=== PATIENT | female | born 1955 | race Caucasian/White ===

== ENCOUNTER 2016-11-02 06:09 | Emergency (ER) | payer SELFPAY ==
[~2016-11-02 06:09] MED LIST: CYAN100017 PO; CYTO25TA PO; FLUO-1 PO; LEVO.1 PO; MIRTA15 PO; QUET1TAB7 PO
[2016-11-02 06:12] VITALS: BP 150/81; PULSE 75; RESP 16; TEMP 97.6; O2SAT 98
--- NOTE | 2016-11-02 06:52 | PD ---
HPI Chief Complaint: Psychiatric Symptoms Time Seen by Provider: 06:45 Travel History International Travel<30 days: No Contact w/Intl Traveler<30days: No Traveled to known affect area: No History of Present Illness HPI This is a 61-year-old female with a history of major depressive disorder who comes in voluntarily requesting psychiatric evaluation. She reports that for the past several months she has been experiencing depression, racing thoughts, insomnia. This patient was admitted psychiatrically here in July. She reports that she was discharged on Seroquel and she was also taking Prozac. This seemed to help a little bit with her insomnia but she shortly ran out. She has been unable to follow-up as an outpatient with the psychiatry team. She is currently living with her friend. Symptoms have been worsening which prompted evaluation today. She feels depressed, feels that she can no longer live this way but has no specific plans for suicide. Denies any drug or alcohol use. No medical complaints at this time. PFSH Past Medical History Arthritis: No Asthma: No Anxiety: Yes Depression: Yes Heart Rhythm Problems: No Cancer: No (Denied) Cardiovascular Problems: No (Denied) Chest Pain: No Congestive Heart Failure: No COPD: No Cerebrovascular Accident: No Diabetes: No (Denied) Endocrine: Yes Gastrointestinal Disorders: No GERD: No Genitourinary: No Headaches: No (Denied) Hiatal Hernia: No Hypertension: No Implanted Vascular Access Dvce: No Kidney Stones: No Musculoskeletal: No Neurologic: No Psychiatric: Yes (JENNIFER, SAD, Bipolar) Reproductive: No Respiratory: No Immunizations Current: Yes Migraines: No Renal Failure: No Seizures: No (Denied) Sleep Apnea: No Thyroid Disease: Yes (patient on synthroid) Ulcer: No Tetanus Vaccination: Unknown Influenza Vaccination: No Past Surgical History Other Surgery: No Social History Alcohol Use: No Tobacco Use: Yes Substance Use: No Allergies-Medications (Allergen,Severity, Reaction): Coded Allergies: Sulfa (Unverified Allergy, Unknown, 11/02/16) Reported Meds & Prescriptions Reported Meds & Active Scripts Active Seroquel XR (Quetiapine Fumarate) 50 Mg Tab 50 Mg PO DAILY B-12 (Cyanocobalamin) 1,000 Mcg Cap 1,000 Mcg PO DAILY Quetiapine (Quetiapine Fumarate) 25 Mg Tab 250 Mg PO HS 5 Days Mirtazapine 15 Mg Tab 45 Mg PO HS 5 Days Cytomel (Liothyronine Sodium) 25 Mcg Tab 25 Mcg PO DAILY 5 Days Synthroid (Levothyroxine Sodium) 100 Mcg Tab 100 Mcg PO DAILY@0600 5 Days Prozac (Fluoxetine HCl) 10 Mg Cap 40 Mg PO DAILY 5 Days Review of Systems Except as stated in HPI: all other systems reviewed are Neg Physical Exam Narrative GENERAL: Well-developed well-nourished female in no acute distress SKIN: Warm and dry. HEAD: Atraumatic. Normocephalic. EYES: Pupils equal and round. No scleral icterus. No injection or drainage. ENT: No nasal bleeding or discharge. Mucous membranes pink and moist. NECK: Trachea midline. No JVD. CARDIOVASCULAR: Regular rate and rhythm. No murmur appreciated. RESPIRATORY: No accessory muscle use. Clear to auscultation. Breath sounds equal bilaterally. GASTROINTESTINAL: Abdomen soft, non-tender, nondistended. Hepatic and splenic margins not palpable. MUSCULOSKELETAL: No obvious deformities. No edema. NEUROLOGICAL: Awake and alert. No obvious cranial nerve deficits. Motor grossly within normal limits. Normal speech. PSYCHIATRIC: Somewhat depressed mood; insight and judgment normal. Data Data Last Documented VS Vital Signs Date Time Temp Pulse Resp B/P Pulse Ox O2 Delivery O2 Flow Rate FiO2 11/02/16 14:35 57 18 122/67 99 11/02/16 11:54 Room Air 11/02/16 09:56 97.7 Orders Complete Blood Count With Diff (11/02/16 06:39) Comprehensive Metabolic Panel (11/02/16 06:39) Urinalysis - C+S If Indicated (11/02/16 06:39) Drug Screen, Random Urine (11/02/16 06:39) Alcohol (Ethanol) (11/02/16 06:39) Salicylates (Aspirin) (11/02/16 06:39) Tylenol (Acetaminophen) (11/02/16 06:39) Psych Screen (11/02/16 06:39) Levothyroxine (Synthroid) (11/02/16 07:45) Buspirone (Buspar) (11/02/16 08:00) Labs Laboratory Tests Test 11/02/16 06:53 White Blood Count 6.7 TH/MM3 Red Blood Count 4.73 MIL/MM3 Hemoglobin 15.4 GM/DL Hematocrit 45.4 % Mean Corpuscular Volume 96.0 FL Mean Corpuscular Hemoglobin 32.5 PG Mean Corpuscular Hemoglobin 33.9 % Concent Red Cell Distribution Width 14.3 % Platelet Count 209 TH/MM3 Mean Platelet Volume 7.9 FL Neutrophils (%) (Auto) 63.8 % Lymphocytes (%) (Auto) 26.6 % Monocytes (%) (Auto) 8.4 % Eosinophils (%) (Auto) 0.4 % Basophils (%) (Auto) 0.8 % Neutrophils # (Auto) 4.3 TH/MM3 Lymphocytes # (Auto) 1.8 TH/MM3 Monocytes # (Auto) 0.6 TH/MM3 Eosinophils # (Auto) 0.0 TH/MM3 Basophils # (Auto) 0.1 TH/MM3 CBC Comment DIFF FINAL Differential Comment Urine Color DARK-YELLOW Urine Turbidity HAZY Urine pH 6.0 Urine Specific [place] 1.033 Urine Protein 30 mg/dL Urine Glucose (UA) NEG mg/dL Urine Ketones TRACE mg/dL Urine Occult Blood NEG Urine Nitrite NEG Urine Bilirubin NEG Urine Urobilinogen 4.0 MG/DL Urine Leukocyte Esterase MOD Urine RBC 3 /hpf Urine WBC 4 /hpf Urine Squamous Epithelial 4 /hpf Cells Urine Calcium Oxalate Crystals MANY /hpf Urine Mucus MANY /lpf Microscopic Urinalysis Comment CULT NOT INDICATED Sodium Level 142 MEQ/L Potassium Level 3.5 MEQ/L Chloride Level 106 MEQ/L Carbon Dioxide Level 26.0 MEQ/L Anion Gap 10 MEQ/L Blood Urea Nitrogen 20 MG/DL Creatinine 1.32 MG/DL Estimat Glomerular Filtration 41 ML/MIN Rate Random Glucose 98 MG/DL Calcium Level 9.2 MG/DL Total Bilirubin 0.9 MG/DL Aspartate Amino Transf 13 U/L (AST/SGOT) Alanine Aminotransferase 30 U/L (ALT/SGPT) Alkaline Phosphatase 77 U/L Total Protein 7.6 GM/DL Albumin 4.4 GM/DL Salicylates Level 4.1 MG/DL Urine Opiates Screen NEG Acetaminophen Level LESS THAN 2.0 MCG/ML Urine Barbiturates Screen NEG Urine Amphetamines Screen NEG Urine Benzodiazepines Screen NEG Urine Cocaine Screen NEG Urine Cannabinoids Screen NEG Ethyl Alcohol Level LESS THAN 3 MG/DL MDM Medical Decision Making Medical Screen Exam Complete: Yes Emergency Medical Condition: Yes Medical Record Reviewed: Yes Differential Diagnosis Insomnia, adjustment reaction, medication noncompliance, acute psychosis, major depressive disorder, depressive disorder not otherwise specified Narrative Course 65-year-old female who reports a history of major depressive disorder presents voluntarily or psychiatric evaluation of insomnia, depression, suicidal thoughts for the past several months. Unable to establish outpatient psychiatric follow-up after a psychiatric hospitalization in late July of this year. Mental health screening discussed with the patient. Psychiatric screen ordered. The patient will be medically cleared pending lab work. Scripts Quetiapine XR (Seroquel XR)50 Mg Tab50 Mg PO DAILY #30 TAB Ref 0 Prov:Brant Alejandro MD 11/02/16 Jose Zafar Nov 02, 2016 06:52
[2016-11-02 07:03] LABS: AUTOMATED NEUTROPHIL # 4.3 TH/MM3 (1.8-7.7); BASOPHIL # 0.1 TH/MM3 (0-0.2); BASOPHIL % 0.8 % (0.0-2.0); EOSINOPHIL % 0.4 % (0.0-4.0); HEMATOCRIT 45.4 % (35.0-46.0); HEMO FLAGS DIFF FINAL; LYMPH % 26.6 % (9.0-44.0); LYMPHOCYTE # 1.8 TH/MM3 (1.0-4.8); MEAN CORPUSCULAR HEMOGLOBIN 32.5 PG (27.0-34.0); MEAN CORPUSCULAR HGB CONC 33.9 % (32.0-36.0); MONO % 8.4 % (0.0-8.0); NEUT % 63.8 % (16.0-70.0); PLATELET COUNT 209 TH/MM3 (150-450); RED BLOOD COUNT 4.73 MIL/MM3 (4.00-5.30); RED CELL DISTRIBUTION WIDTH 14.3 % (11.6-17.2); WHITE BLOOD COUNT 6.7 TH/MM3 (4.0-11.0)
[2016-11-02 07:11] LABS: BLOOD, URINE NEG (NEG); CALCIUM OXALATE CRYSTALS,URINE MANY /hpf; GLUCOSE,URINE NEG (NEG); KETONE, URINE TRACE mg/dL (NEG); MUCUS URINE MANY /lpf (OCC); NITRITE,URINE NEG (NEG); SQUAMOUS EPITHELIAL CELL URINE 4 /hpf (0-5); URINE COLOR DARK-YELLOW (YELLW/STRAW)
[2016-11-02 07:13] LABS: COMMENT (UR) CULT NOT INDICATED; CULTURE IF INDICATED CULT NOT INDICATED
[2016-11-02 07:17] LABS: AMPHETAMINE, URINE NEG (NEG); BARBITURATES, URINE NEG (NEG); COCAINE, URINE NEG (NEG)
[2016-11-02 07:25] LABS: ACETAMINOPHEN LESS THAN 2.0 MCG/ML (10.0-30.0); ALT (GPT) 30 U/L (10-53); ANION GAP 10 MEQ/L (5-15); AST (GOT) 13 U/L (15-37); BLOOD UREA NITROGEN 20 MG/DL (7-18); CHLORIDE 106 MEQ/L (98-107); GLOMERULAR FILTRATION RATE 41 ML/MIN (>89); POTASSIUM 3.5 MEQ/L (3.5-5.1); SODIUM (NA) 142 MEQ/L (136-145)
[2016-11-02 07:27] LABS: ALKALINE PHOSPHATASE 77 U/L (45-117); TOTAL BILIRUBIN ADULT 0.9 MG/DL (0.2-1.0)
[2016-11-02] MEDS ORDERED: LEVOTHYROXINE SODIUM 100 MCG TAB PO ONE (07:45)
--- NOTE | 2016-11-02 07:45 | PD ---
Physical Exam Date Seen by Provider: Nov 02, 2016 Narrative For full history and physical examination please see previous provider's note. I assumed care of this patient at change of shift. Patient was seen and evaluated in A11. Her friend is at bedside. Data Data Last Documented VS Vital Signs Date Time Temp Pulse Resp B/P Pulse Ox O2 Delivery O2 Flow Rate FiO2 11/02/16 06:44 16 11/02/16 06:12 97.6 75 150/81 98 Orders Complete Blood Count With Diff (11/02/16 06:39) Comprehensive Metabolic Panel (11/02/16 06:39) Urinalysis - C+S If Indicated (11/02/16 06:39) Drug Screen, Random Urine (11/02/16 06:39) Alcohol (Ethanol) (11/02/16 06:39) Salicylates (Aspirin) (11/02/16 06:39) Tylenol (Acetaminophen) (11/02/16 06:39) Psych Screen (11/02/16 06:39) Levothyroxine (Synthroid) (11/02/16 07:45) Labs Laboratory Tests Test 11/02/16 06:53 White Blood Count 6.7 TH/MM3 Red Blood Count 4.73 MIL/MM3 Hemoglobin 15.4 GM/DL Hematocrit 45.4 % Mean Corpuscular Volume 96.0 FL Mean Corpuscular Hemoglobin 32.5 PG Mean Corpuscular Hemoglobin 33.9 % Concent Red Cell Distribution Width 14.3 % Platelet Count 209 TH/MM3 Mean Platelet Volume 7.9 FL Neutrophils (%) (Auto) 63.8 % Lymphocytes (%) (Auto) 26.6 % Monocytes (%) (Auto) 8.4 % Eosinophils (%) (Auto) 0.4 % Basophils (%) (Auto) 0.8 % Neutrophils # (Auto) 4.3 TH/MM3 Lymphocytes # (Auto) 1.8 TH/MM3 Monocytes # (Auto) 0.6 TH/MM3 Eosinophils # (Auto) 0.0 TH/MM3 Basophils # (Auto) 0.1 TH/MM3 CBC Comment DIFF FINAL Differential Comment Urine Color DARK-YELLOW Urine Turbidity HAZY Urine pH 6.0 Urine Specific [place] 1.033 Urine Protein 30 mg/dL Urine Glucose (UA) NEG mg/dL Urine Ketones TRACE mg/dL Urine Occult Blood NEG Urine Nitrite NEG Urine Bilirubin NEG Urine Urobilinogen 4.0 MG/DL Urine Leukocyte Esterase MOD Urine RBC 3 /hpf Urine WBC 4 /hpf Urine Squamous Epithelial 4 /hpf Cells Urine Calcium Oxalate Crystals MANY /hpf Urine Mucus MANY /lpf Microscopic Urinalysis Comment CULT NOT INDICATED Sodium Level 142 MEQ/L Potassium Level 3.5 MEQ/L Chloride Level 106 MEQ/L Carbon Dioxide Level 26.0 MEQ/L Anion Gap 10 MEQ/L Blood Urea Nitrogen 20 MG/DL Creatinine 1.32 MG/DL Estimat Glomerular Filtration 41 ML/MIN Rate Random Glucose 98 MG/DL Calcium Level 9.2 MG/DL Total Bilirubin 0.9 MG/DL Aspartate Amino Transf 13 U/L (AST/SGOT) Alanine Aminotransferase 30 U/L (ALT/SGPT) Alkaline Phosphatase 77 U/L Total Protein 7.6 GM/DL Albumin 4.4 GM/DL Salicylates Level 4.1 MG/DL Urine Opiates Screen NEG Acetaminophen Level LESS THAN 2.0 MCG/ML Urine Barbiturates Screen NEG Urine Amphetamines Screen NEG Urine Benzodiazepines Screen NEG Urine Cocaine Screen NEG Urine Cannabinoids Screen NEG Ethyl Alcohol Level LESS THAN 3 MG/DL [facility] Medical Record Reviewed: Yes Supervised Visit with MATHEW: No Interpretation(s) Vital Signs Date Time Temp Pulse Re 16 150/81 98 Differential Diagnosis Depression versus mood disorder versus substance abuse versus hypothyroidism versus other Narrative Course Patient is a 61-year-old female who presented to emergency department voluntarily for psychiatric evaluation. Patient states to me that she's been very depressed for the last several months, she has not had outpatient follow- up. She denies any specific suicidal ideations but states that she can no longer go on like this. Patient's labs reviewed. CBC is unremarkable, tox screen was negative, chemistry showed elevated BUN/creatinine, urinalysis is not indicative of a urinary tract infection. Patient stated that she does not drink enough fluids or eat secondary to the depression. Friend at bedside states that she has to force her to eat and drink. Patient was encouraged to increase oral fluid intake. Patient will be given dose of levothyroxine in the emergency department this morning. Patient is medically cleared this time. She was given pamphlets for the [facility]'s [facility], the [facility], and [place] resources that are available to her. Diagnosis Primary Impression: Medical clearance for psychiatric admission Referrals: [facility] [place] Condition: Stable Sonia Shanks Nov 02, 2016 07:45
[2016-11-02] MEDS ORDERED: busPIRone HCL 10 MG TAB PO ONE (08:00)
[2016-11-02 09:56] VITALS: BP 130/90; PULSE 63; RESP 18; TEMP 97.7; O2SAT 100
[2016-11-02 11:54] VITALS: BP 151/67; PULSE 59; RESP 18; O2SAT 96
[2016-11-02 14:35] VITALS: BP 122/67; PULSE 57; RESP 18; O2SAT 99
[2016-11-02] MEDS ORDERED: QUET50XR PO (16:40)
== END 2016-11-02 18:50 | disposition home or self-care (01) ==
LOC: NEPA 06:09 → NEPJ 18:50
DX: F41.8 Other specified anxiety disorders (principal)
CPT/HCPCS: 80053; 80307; 80320; 80329; 81001; 85025; 99283; G0480

== ENCOUNTER 2018-02-08 11:31 | Inpatient (IN) | payer SELFPAY ==
[2018-02-08] VITALS (8 sets, daily range): BP systolic 131–150; BP diastolic 63–72; PULSE 49–84; RESP 16–20; TEMP 97.2; O2SAT 97–99
[~2018-02-08] VITALS: Ht 157.5 cm; Wt 97.5 kg
[~2018-02-08 11:31] MED LIST changes: -CYTO25TA PO; +LIOT25 PO; +QUET50XR PO
[2018-02-08 12:57] LABS: AUTOMATED NEUTROPHIL # 2.5 TH/MM3 (1.8-7.7); BASOPHIL # 0.1 TH/MM3 (0-0.2); BASOPHIL % 1.7 % (0.0-2.0); EOSINOPHIL # 0.1 TH/MM3 (0-0.4); EOSINOPHIL % 2.4 % (0.0-4.0); HEMATOCRIT 38.5 % (35.0-46.0); HEMOGLOBIN 13.4 GM/DL (11.6-15.3); LYMPH % 27.7 % (9.0-44.0); LYMPHOCYTE # 1.2 TH/MM3 (1.0-4.8); MEAN CELL VOLUME 99.4 FL (80.0-100.0); MEAN CORPUSCULAR HEMOGLOBIN 34.6 PG (27.0-34.0); MEAN CORPUSCULAR HGB CONC 34.8 % (32.0-36.0); MEAN PLATELET VOLUME 8.5 FL (7.0-11.0); MONOCYTE # 0.4 TH/MM3 (0-0.9); NEUT % 58.2 % (16.0-70.0); PLATELET COUNT 170 TH/MM3 (150-450); RED BLOOD COUNT 3.88 MIL/MM3 (4.00-5.30); RED CELL DISTRIBUTION WIDTH 13.4 % (11.6-17.2); WHITE BLOOD COUNT 4.3 TH/MM3 (4.0-11.0)
[2018-02-08 13:20] LABS: ALBUMIN 5.1 GM/DL (3.4-5.0); AST (GOT) 231 U/L (15-37); BICARBONATE 27.3 MEQ/L (21.0-32.0); BLOOD UREA NITROGEN 21 MG/DL (7-18); CALCIUM 9.3 MG/DL (8.5-10.1); CHLORIDE 103 MEQ/L (98-107); CREATININE 1.94 MG/DL (0.50-1.00); GLOMERULAR FILTRATION RATE 26 ML/MIN (>89); GLUCOSE,RANDOM 93 MG/DL (74-106); SODIUM (NA) 138 MEQ/L (136-145)
[2018-02-08 13:21] LABS: ALT (GPT) 248 U/L (10-53)
[2018-02-08 13:24] LABS: ALKALINE PHOSPHATASE 74 U/L (45-117); TOTAL BILIRUBIN ADULT 0.5 MG/DL (0.2-1.0); TOTAL PROTEIN 8.5 GM/DL (6.4-8.2)
[2018-02-08] MEDS ORDERED: ASCO500C PO (14:03)
[2018-02-08] MEDS ORDERED: HYDR-3583 PO (14:03)
[2018-02-08] MEDS ORDERED: ZOLP10TA3 PO (14:03)
[2018-02-08] MEDS ORDERED: CYCL10TA PO (14:03)
[2018-02-08] MEDS ORDERED: SELE200T17 PO (14:03)
[2018-02-08] MEDS ORDERED: VITA-142 PO (14:03)
[2018-02-08] MEDS ORDERED: VENTAER INH (14:03)
[2018-02-08] MEDS ORDERED: DIAZ5TAB PO (14:03)
[2018-02-08] MEDS ORDERED: PROT40TA PO (14:03)
[2018-02-08] MEDS ORDERED: ROSU1TAB8 PO (14:03)
[2018-02-08] MEDS ORDERED: ZINC50TA2 PO (14:03)
[2018-02-08] MEDS ORDERED: VITA100018 PO (14:03)
[2018-02-08] MEDS ORDERED: LEVO100T5 PO (14:03)
[2018-02-08] MEDS ORDERED: VITACAP7 PO (14:03)
[2018-02-08] MEDS ORDERED: SODIUM CHLORIDE 0.9% FLUSH 10 ML FLUSH IVF PRN (14:45)
[2018-02-08] MEDS ORDERED: SODIUM CHLOR 0.9% 1000 ML INJ 1,000 ML IV ONE ×2 (14:45→16:30)
--- NOTE | 2018-02-08 15:00 | RADRPT ---
EXAM DATE/TIME: 02/08/2018 14:46 [place] COMPARISON: No previous studies available for comparison. INDICATIONS : Short of breath. MEDICAL HISTORY : None. SURGICAL HISTORY : Tonsillectomy. ENCOUNTER: Initial ACUITY: 1 day PAIN SCORE: 0/10 LOCATION: Bilateral chest FINDINGS: A single view of the chest demonstrates the lungs to be symmetrically aerated without evidence of mas s, infiltrate or effusion. The cardiomediastinal contours are unremarkable. Osseous structures are intact. CONCLUSION: No acute disease. Kang Denise MD FACR on February 08, 2018 at 14:57 Board Certified Radiologist. This report was verified electronically.
--- NOTE | 2018-02-08 15:25 | PD ---
HPI Chief Complaint: Edema Time Seen by Provider: 14:19 Travel History International Travel<30 days: No Contact w/Intl Traveler<30days: No Traveled to known affect area: No History of Present Illness HPI Patient is a 62-year-old female presenting to the emergency department for evaluation chest pressure, petechial rash, facial swelling. Patient states the swelling started several weeks ago. The petechial rash and chest pressure started yesterday, patient reports radiation down both of her arms the right is greater than left. She also reports urinary frequency feels as if she is not emptying her bladder completely. She denies any shortness of breath, swelling to her lower extremities. Patient denies any significant past medical history other than hypothyroidism. She states she has been off of the levothyroxine for approximately 3 months. She initially attributed her symptoms to her thyroid. Patient presented today because the symptoms have been worsening. She denies any chronic alcohol use, illicit drug use or tobacco use. There are no alleviating factors. Symptom onset was gradual, symptoms are moderate in nature. Patient has not been to a primary doctor in several years. She denies any cardiac history. Patient also reports widespread muscle aches. She reports feeling as if she has been working out hard which she has not. She states this pain is a 5 out of 10, there are no alleviating factors pain is exacerbated with movement. [facility] Past Medical History Anxiety: Yes Depression: Yes Immunizations Current: Yes Thyroid Disease: Yes Tetanus Vaccination: Unknown Past Surgical History Tonsillectomy: Yes Other Surgery: No Social History Alcohol Use: No Tobacco Use: Yes (11/01 PPD) Substance Use: No Allergies-Medications (Allergen,Severity, Reaction): Coded Allergies: Sulfa (Sulfonamide Antibiotics) (Unverified Allergy, Unknown, 02/08/18) Reported Meds & Prescriptions Reported Meds & Active Scripts Active No Active Prescriptions or Reported Medications Review of Systems Except as stated in HPI: all other systems reviewed are Neg Eyes: Positive: Other (Edema to bilateral lower eyelids) HENT: No: Headaches, Lightheadedness Cardiovascular: Positive: Chest Pain or Discomfort, No: Tachycardia, Diaphoresis Respiratory: No: Shortness of Breath Gastrointestinal: No: Nausea, Vomiting, Abdominal Pain Genitourinary: Positive: Frequency, Hesitancy Musculoskeletal: Positive: Myalgias Skin: Positive Change in Pigmentation Neurologic: Positive: Weakness Physical Exam Narrative GENERAL: Well-developed, well-nourished, alert female. Presenting in no acute distress. SKIN: Warm and dry. Petechial rash to bilateral upper extremities HEAD: Atraumatic. Normocephalic. EYES: Pupils equal and round. No scleral icterus. No injection or drainage. Edema without erythema to bilateral lower eyelids. ENT: No nasal bleeding or discharge. Mucous membranes pink and moist. NECK: Trachea midline. No JVD. CARDIOVASCULAR: Bradycardic RESPIRATORY: No accessory muscle use. Clear to auscultation. Breath sounds equal bilaterally. GASTROINTESTINAL: Abdomen soft, non-tender, nondistended. Hepatic and splenic margins not palpable. MUSCULOSKELETAL: Extremities without clubbing, cyanosis, or edema. No obvious deformities. NEUROLOGICAL: Awake and alert. No obvious cranial nerve deficits. Motor grossly within normal limits. Five out of 5 muscle strength in the arms and legs. Normal speech. PSYCHIATRIC: Appropriate mood and affect; insight and judgment normal. Data Data Last Documented VS Vital Signs Date Time Temp Pulse Resp B/P (MAP) Pulse Ox O2 Delivery O2 Flow Rate FiO2 02/08/18 14:47 99 Room Air 02/08/18 14:21 63 18 02/08/18 12:03 97.2 Orders Orders C-Reactive Protein (Crp) (02/08/18 12:09) W[place]gren Sedimentation Rate (02/08/18 12:09) Complete Blood Count With Diff (02/08/18 12:08) Comprehensive Metabolic Panel (02/08/18 12:08) B-Type Natriuretic Peptide (02/08/18 14:33) Act Partial Throm Time (Ptt) (02/08/18 14:33) Prothrombin Time / Inr (Pt) (02/08/18 14:33) Magnesium (Mg) (02/08/18 14:33) Ckmb (Isoenzyme) Profile (02/08/18 14:33) Troponin I (02/08/18 14:33) Urinalysis - C+S If Indicated (02/08/18 14:33) Iv Access Insert/Monitor (02/08/18 14:33) Ecg Monitoring (02/08/18 14:33) Oximetry (02/08/18 14:33) Oxygen Administration (02/08/18 14:33) Chest, Single Ap (02/08/18 14:33) Sodium Chloride 0.9% Flush (Ns Flush) (02/08/18 14:45) Sodium Chlor 0.9% 1000 Ml Inj (Ns 1000 M (02/08/18 14:45) Creatine Kinase (Cpk) (02/08/18 14:33) Thyroid Stimulating Hormone (02/08/18 14:33) Free Thyroxine (T4) (02/08/18 14:33) Electrocardiogram (02/08/18 ) CKMB (02/08/18 14:55) CKMB% (02/08/18 14:55) Lipase (02/08/18 16:20) Sodium Chlor 0.9% 1000 Ml Inj (Ns 1000 M (02/08/18 16:30) Admit To Inpatient (02/08/18 ) Vital Signs (Adult) Q4H (02/08/18 17:16) Activity Oob With Assistance (02/08/18 17:16) Registered Nurse Cardiac Telemetry / Telemetry .CONTINUOUS (02/08/18 17:16) Diet Heart Healthy (02/08/18 Dinner) Sodium Chlor 0.9% 1000 Ml Inj (Ns 1000 M (02/08/18 17:16) Sodium Chloride 0.9% Flush (Ns Flush) (02/08/18 17:30) Sodium Chloride 0.9% Flush (Ns Flush) (02/08/18 21:00) Ondansetron Inj (Zofran Inj) (02/08/18 17:30) Comprehensive Metabolic Panel (02/09/18 06:00) Complete Blood Count With Diff (02/09/18 06:00) Creatine Kinase (Cpk) (02/08/18 17:16) Creatine Kinase (Cpk) (02/08/18 23:16) Troponin I (02/08/18 17:16) Troponin I (02/08/18 23:16) Electrocardiogram (02/08/18 17:16) Electrocardiogram (02/08/18 23:16) Pt Request For Service (02/08/18 17:16) Case Management Consult (02/08/18 17:16) Naloxone Inj (Narcan Inj) (02/08/18 17:30) Inpatient Certification (02/08/18 ) Admit Order (Ed Use Only) (02/08/18 17:16) Free T3 (02/08/18 17:16) Labs Laboratory Tests Test 02/08/18 12:45 02/08/18 14:50 02/08/18 14:55 White Blood Count 4.3 TH/MM3 Red Blood Count 3.88 MIL/MM3 Hemoglobin 13.4 GM/DL Hematocrit 38.5 % Mean Corpuscular Volume 99.4 FL Mean Corpuscular Hemoglobin 34.6 PG Mean Corpuscular Hemoglobin Concent 34.8 % Red Cell Distribution Width 13.4 % Platelet Count 170 TH/MM3 Mean Platelet Volume 8.5 FL Neutrophils (%) (Auto) 58.2 % Lymphocytes (%) (Auto) 27.7 % Monocytes (%) (Auto) 10.0 % Eosinophils (%) (Auto) 2.4 % Basophils (%) (Auto) 1.7 % Neutrophils # (Auto) 2.5 TH/MM3 Lymphocytes # (Auto) 1.2 TH/MM3 Monocytes # (Auto) 0.4 TH/MM3 Eosinophils # (Auto) 0.1 TH/MM3 Basophils # (Auto) 0.1 TH/MM3 CBC Comment DIFF FINAL Differential Comment Erythrocyte Sedimentation Rate 21 mm/hr Blood Urea Nitrogen 21 MG/DL Creatinine 1.94 MG/DL Random Glucose 93 MG/DL Total Protein 8.5 GM/DL Albumin 5.1 GM/DL Calcium Level 9.3 MG/DL Alkaline Phosphatase 74 U/L Aspartate Amino Transf (AST/SGOT) 231 U/L Alanine Aminotransferase (ALT/SGPT) 248 U/L Total Bilirubin 0.5 MG/DL Sodium Level 138 MEQ/L Potassium Level 4.4 MEQ/L Chloride Level 103 MEQ/L Carbon Dioxide Level 27.3 MEQ/L Anion Gap 8 MEQ/L Estimat Glomerular Filtration Rate 26 ML/MIN C-Reactive Protein LESS THAN 0.29 MG/DL Urine Color LIGHT-YELLOW Urine Turbidity CLEAR Urine pH 7.5 Urine Specific [place] 1.005 Urine Protein NEG mg/dL Urine Glucose (UA) NEG mg/dL Urine Ketones NEG mg/dL Urine Occult Blood NEG Urine Nitrite NEG Urine Bilirubin NEG Urine Urobilinogen LESS THAN 2.0 MG/DL Urine Leukocyte Esterase NEG Urine RBC LESS THAN 1 /hpf Urine WBC LESS THAN 1 /hpf Urine Squamous Epithelial Cells <1 /hpf Microscopic Urinalysis Comment CULT NOT INDICATED Prothrombin Time 11.3 SEC Prothromb Time International Ratio 1.1 RATIO Activated Partial Thromboplast Time 30.4 SEC Magnesium Level 2.4 MG/DL Total Creatine Kinase 2932 U/L Creatine Kinase MB 41.9 NG/ML Creatine Kinase MB % 1.4 % Troponin I LESS THAN 0.02 NG/ML B-Type Natriuretic Peptide 11 PG/ML Lipase 218 U/L Free Thyroxine 0.14 NG/DL Thyroid Stimulating Hormone 3rd Gen 85.700 uIU/ML MDM Medical Decision Making Medical Screen Exam Complete: Yes Emergency Medical Condition: Yes Interpretation(s) Last Impressions Chest X-Ray 02/08/18 1433 Signed Impressions: Service Date/Time: Thursday, February 08, 2018 14:46 - CONCLUSION: No acute disease. Kang Denise MD FACR Laboratory Tests Test 02/08/18 12:45 02/08/18 14:50 02/08/18 14:55 White Blood Count 4.3 TH/MM3 Red Blood Count 3.88 MIL/MM3 Hemoglobin 13.4 GM/DL Hematocrit 38.5 % Mean Corpuscular Volume 99.4 FL Mean Corpuscular Hemoglobin 34.6 PG Mean Corpuscular Hemoglobin Concent 34.8 % Red Cell Distribution Width 13.4 % Platelet Count 170 TH/MM3 Mean Platelet Volume 8.5 FL Neutrophils (%) (Auto) 58.2 % Lymphocytes (%) (Auto) 27.7 % Monocytes (%) (Auto) 10.0 % Eosinophils (%) (Auto) 2.4 % Basophils (%) (Auto) 1.7 % Neutrophils # (Auto) 2.5 TH/MM3 Lymphocytes # (Auto) 1.2 TH/MM3 Monocytes # (Auto) 0.4 TH/MM3 Eosinophils # (Auto) 0.1 TH/MM3 Basophils # (Auto) 0.1 TH/MM3 CBC Comment DIFF FINAL Differential Comment Erythrocyte Sedimentation Rate 21 mm/hr Blood Urea Nitrogen 21 MG/DL Creatinine 1.94 MG/DL Random Glucose 93 MG/DL Total Protein 8.5 GM/DL Albumin 5.1 GM/DL Calcium Level 9.3 MG/DL Alkaline Phosphatase 74 U/L Aspartate Amino Transf (AST/SGOT) 231 U/L Alanine Aminotransferase (ALT/SGPT) 248 U/L Total Bilirubin 0.5 MG/DL Sodium Level 138 MEQ/L Potassium Level 4.4 MEQ/L Chloride Level 103 MEQ/L Carbon Dioxide Level 27.3 MEQ/L Anion Gap 8 MEQ/L Estimat Glomerular Filtration Rate 26 ML/MIN C-Reactive Protein LESS THAN 0.29 MG/DL Urine Color LIGHT-YELLOW Urine Turbidity CLEAR Urine pH 7.5 Urine Specific [place] 1.005 Urine Protein NEG mg/dL Urine Glucose (UA) NEG mg/dL Urine Ketones NEG mg/dL Urine Occult Blood NEG Urine Nitrite NEG Urine Bilirubin NEG Urine Urobilinogen LESS THAN 2.0 MG/DL Urine Leukocyte Esterase NEG Urine RBC LESS THAN 1 /hpf Urine WBC LESS THAN 1 /hpf Urine Squamous Epithelial Cells <1 /hpf Microscopic Urinalysis Comment CULT NOT INDICATED Prothrombin Time 11.3 SEC Prothromb Time International Ratio 1.1 RATIO Activated Partial Thromboplast Time 30.4 SEC Magnesium Level 2.4 MG/DL Total Creatine Kinase 2932 U/L Creatine Kinase MB 41.9 NG/ML Creatine Kinase MB % 1.4 % Troponin I LESS THAN 0.02 NG/ML B-Type Natriuretic Peptide 11 PG/ML Lipase 218 U/L Free Thyroxine 0.14 NG/DL Thyroid Stimulating Hormone 3rd Gen 85.700 uIU/ML Vital Signs Date Time Temp Pulse Resp B/P (MAP) Pulse Ox O2 Delivery O2 Flow Rate FiO2 02/08/18 14:47 99 Room Air 02/08/18 14:47 99 Room Air 02/08/18 14:21 63 18 98 Room Air 02/08/18 14:21 68 18 99 Room Air 02/08/18 12:03 97.2 64 17 150/72 (98) 99 Differential Diagnosis Metabolic abnormality versus CHF versus thyroid disorder versus arrhythmia versus other Narrative Course Patient is a 62-year-old female presenting for evaluation multiple complaints. Patient has had no outpatient follow-up in several years. Labs and imaging ordered and pending. Initial EKG shows sinus bradycardia with a rate of 51. IV access established, patient placed on telemetry monitoring continuous pulse oximetry. CBC with no acute findings, sed rate is normal Chemistry with elevated AST and ALT at 231/248, lipase is 218 BUN and creatinine 21/1.94 CPKs 2932 Cardiac enzymes are negative 1 set BNP is 11 TSH is 85.7, free T4 0.14 Urinalysis is unremarkable. [facility] paged for admission for myxedema. Please See my attending physician note. IV levothyroxine ordered per his recommendation. Dr. Chaparro accepted admit, orders placed. Pt is anxious, reports hx of agoraphobia. She was given xanax 0.5mg po x 1 dose. Diagnosis Primary Impression: Hypothyroidism Qualified Codes: E03.9 - Hypothyroidism, unspecified Additional Impressions: Transaminitis Rhabdomyolysis Qualified Codes: M62.82 - Rhabdomyolysis Petechial rash Bradycardia Edema Qualified Codes: R60.0 - Localized edema ANDERSON (acute kidney injury) Admitting Information Admitting Physician Requests: Admit Scripts No Active Prescriptions or Reported Meds Condition: Stable Sonia Shanks [facility] Feb 08, 2018 15:24
[2018-02-08 15:32] LABS: BILIRUBIN, URINE NEG (NEG); BLOOD, URINE NEG (NEG); GLUCOSE,URINE NEG (NEG); KETONE, URINE NEG (NEG); NITRITE,URINE NEG (NEG); PH, URINE 7.5 (5.0-8.5); SQUAMOUS EPITHELIAL CELL URINE <1 /hpf (0-5); URINE COLOR LIGHT-YELLOW (YELLW/STRAW); URINE LEUKOCYTE ESTERASE NEG (NEG)
[2018-02-08 15:42] LABS: INTERNATIONAL NORMALIZED RATIO 1.1 RATIO; PROTHROMBIN TIME - PATIENT 11.3 SEC (9.8-11.6)
[2018-02-08 15:48] LABS: MAGNESIUM 2.4 MG/DL (1.5-2.5)
[2018-02-08 16:02] LABS: FREE T4 0.14 NG/DL (0.76-1.46); TROPONIN I LESS THAN 0.02 NG/ML (0.02-0.05)
[2018-02-08] MEDS ORDERED: SODIUM CHLORIDE 0.9% FLUSH 10 ML FLUSH IV FLUSH PRN (17:30)
[2018-02-08] MEDS ORDERED: ONDANSETRON HCL 4 MG/2 ML VIAL IVP PRN (17:30)
[2018-02-08] MEDS ORDERED: NALOXONE HCL 0.4 MG/ML AMP IV PUSH PRN (17:30)
[2018-02-08] MEDS ORDERED: LEVOTHYROXINE SODIUM 100 MCG VIAL IV PUSH ONE (17:30)
--- NOTE | 2018-02-08 17:32 | PD ---
Physical Exam Date Seen by Provider: Feb 08, 2018 Time Seen by Provider: 17:27 Narrative The patient is a 62-year-old female was initially evaluated by the mid-level provider. Please refer to the initial history, physical, diagnostic evaluation , and plan. Data Data Last Documented VS Vital Signs Date Time Temp Pulse Resp B/P (MAP) Pulse Ox O2 Delivery O2 Flow Rate FiO2 02/08/18 14:47 99 Room Air 02/08/18 14:21 63 18 02/08/18 12:03 97.2 Orders Orders C-Reactive Protein (Crp) (02/08/18 12:09) W[place]gren Sedimentation Rate (02/08/18 12:09) Complete Blood Count With Diff (02/08/18 12:08) Comprehensive Metabolic Panel (02/08/18 12:08) B-Type Natriuretic Peptide (02/08/18 14:33) Act Partial Throm Time (Ptt) (02/08/18 14:33) Prothrombin Time / Inr (Pt) (02/08/18 14:33) Magnesium (Mg) (02/08/18 14:33) Ckmb (Isoenzyme) Profile (02/08/18 14:33) Troponin I (02/08/18 14:33) Urinalysis - C+S If Indicated (02/08/18 14:33) Iv Access Insert/Monitor (02/08/18 14:33) Ecg Monitoring (02/08/18 14:33) Oximetry (02/08/18 14:33) Oxygen Administration (02/08/18 14:33) Chest, Single Ap (02/08/18 14:33) Sodium Chloride 0.9% Flush (Ns Flush) (02/08/18 14:45) Sodium Chlor 0.9% 1000 Ml Inj (Ns 1000 M (02/08/18 14:45) Creatine Kinase (Cpk) (02/08/18 14:33) Thyroid Stimulating Hormone (02/08/18 14:33) Free Thyroxine (T4) (02/08/18 14:33) Electrocardiogram (02/08/18 ) CKMB (02/08/18 14:55) CKMB% (02/08/18 14:55) Lipase (02/08/18 16:20) Sodium Chlor 0.9% 1000 Ml Inj (Ns 1000 M (02/08/18 16:30) Admit To Inpatient (02/08/18 ) Vital Signs (Adult) Q4H (02/08/18 17:16) Activity Oob With Assistance (02/08/18 17:16) Trust Administrator / Telemetry .CONTINUOUS (02/08/18 17:16) Diet Heart Healthy (02/08/18 Dinner) Sodium Chlor 0.9% 1000 Ml Inj (Ns 1000 M (02/08/18 17:16) Sodium Chloride 0.9% Flush (Ns Flush) (02/08/18 17:30) Sodium Chloride 0.9% Flush (Ns Flush) (02/08/18 21:00) Ondansetron Inj (Zofran Inj) (02/08/18 17:30) Comprehensive Metabolic Panel (02/09/18 06:00) Complete Blood Count With Diff (02/09/18 06:00) Creatine Kinase (Cpk) (02/08/18 17:16) Creatine Kinase (Cpk) (02/08/18 23:16) Troponin I (02/08/18 17:16) Troponin I (02/08/18 23:16) Electrocardiogram (02/08/18 17:16) Electrocardiogram (02/08/18 23:16) Pt Request For Service (02/08/18 17:16) Case Management Consult (02/08/18 17:16) Naloxone Inj (Narcan Inj) (02/08/18 17:30) Inpatient Certification (02/08/18 ) Admit Order (Ed Use Only) (02/08/18 17:16) Free T3 (02/08/18 17:16) Labs Laboratory Tests Test 02/08/18 12:45 02/08/18 14:50 02/08/18 14:55 White Blood Count 4.3 TH/MM3 Red Blood Count 3.88 MIL/MM3 Hemoglobin 13.4 GM/DL Hematocrit 38.5 % Mean Corpuscular Volume 99.4 FL Mean Corpuscular Hemoglobin 34.6 PG Mean Corpuscular Hemoglobin Concent 34.8 % Red Cell Distribution Width 13.4 % Platelet Count 170 TH/MM3 Mean Platelet Volume 8.5 FL Neutrophils (%) (Auto) 58.2 % Lymphocytes (%) (Auto) 27.7 % Monocytes (%) (Auto) 10.0 % Eosinophils (%) (Auto) 2.4 % Basophils (%) (Auto) 1.7 % Neutrophils # (Auto) 2.5 TH/MM3 Lymphocytes # (Auto) 1.2 TH/MM3 Monocytes # (Auto) 0.4 TH/MM3 Eosinophils # (Auto) 0.1 TH/MM3 Basophils # (Auto) 0.1 TH/MM3 CBC Comment DIFF FINAL Differential Comment Erythrocyte Sedimentation Rate 21 mm/hr Blood Urea Nitrogen 21 MG/DL Creatinine 1.94 MG/DL Random Glucose 93 MG/DL Total Protein 8.5 GM/DL Albumin 5.1 GM/DL Calcium Level 9.3 MG/DL Alkaline Phosphatase 74 U/L Aspartate Amino Transf (AST/SGOT) 231 U/L Alanine Aminotransferase (ALT/SGPT) 248 U/L Total Bilirubin 0.5 MG/DL Sodium Level 138 MEQ/L Potassium Level 4.4 MEQ/L Chloride Level 103 MEQ/L Carbon Dioxide Level 27.3 MEQ/L Anion Gap 8 MEQ/L Estimat Glomerular Filtration Rate 26 ML/MIN C-Reactive Protein LESS THAN 0.29 MG/DL Urine Color LIGHT-YELLOW Urine Turbidity CLEAR Urine pH 7.5 Urine Specific [place] 1.005 Urine Protein NEG mg/dL Urine Glucose (UA) NEG mg/dL Urine Ketones NEG mg/dL Urine Occult Blood NEG Urine Nitrite NEG Urine Bilirubin NEG Urine Urobilinogen LESS THAN 2.0 MG/DL Urine Leukocyte Esterase NEG Urine RBC LESS THAN 1 /hpf Urine WBC LESS THAN 1 /hpf Urine Squamous Epithelial Cells <1 /hpf Microscopic Urinalysis Comment CULT NOT INDICATED Prothrombin Time 11.3 SEC Prothromb Time International Ratio 1.1 RATIO Activated Partial Thromboplast Time 30.4 SEC Magnesium Level 2.4 MG/DL Total Creatine Kinase 2932 U/L Creatine Kinase MB 41.9 NG/ML Creatine Kinase MB % 1.4 % Troponin I LESS THAN 0.02 NG/ML B-Type Natriuretic Peptide 11 PG/ML Lipase 218 U/L Free Thyroxine 0.14 NG/DL Thyroid Stimulating Hormone 3rd Gen 85.700 uIU/ML [facility] Medical Record Reviewed: Yes Supervised Visit with MATHEW: Yes Interpretation(s) EKG reveals sinus bradycardia with a heart rate of 51. No ischemic changes noted. Last Impressions Chest X-Ray 02/08/18 4543 Signed Impressions: Service Date/Time: Thursday, February 08, 2018 14:46 - CONCLUSION: No acute disease. Kang Denise MD FACR Laboratory Tests Test 02/08/18 12:45 02/08/18 14:50 02/08/18 14:55 White Blood Count 4.3 TH/MM3 Red Blood Count 3.88 MIL/MM3 Hemoglobin 13.4 GM/DL Hematocrit 38.5 % Mean Corpuscular Volume 99.4 FL Mean Corpuscular Hemoglobin 34.6 PG Mean Corpuscular Hemoglobin Concent 34.8 % Red Cell Distribution Width 13.4 % Platelet Count 170 TH/MM3 Mean Platelet Volume 8.5 FL Neutrophils (%) (Auto) 58.2 % Lymphocytes (%) (Auto) 27.7 % Monocytes (%) (Auto) 10.0 % Eosinophils (%) (Auto) 2.4 % Basophils (%) (Auto) 1.7 % Neutrophils # (Auto) 2.5 TH/MM3 Lymphocytes # (Auto) 1.2 TH/MM3 Monocytes # (Auto) 0.4 TH/MM3 Eosinophils # (Auto) 0.1 TH/MM3 Basophils # (Auto) 0.1 TH/MM3 CBC Comment DIFF FINAL Differential Comment Erythrocyte Sedimentation Rate 21 mm/hr Blood Urea Nitrogen 21 MG/DL Creatinine 1.94 MG/DL Random Glucose 93 MG/DL Total Protein 8.5 GM/DL Albumin 5.1 GM/DL Calcium Level 9.3 MG/DL Alkaline Phosphatase 74 U/L Aspartate Amino Transf (AST/SGOT) 231 U/L Alanine Aminotransferase (ALT/SGPT) 248 U/L Total Bilirubin 0.5 MG/DL Sodium Level 138 MEQ/L Potassium Level 4.4 MEQ/L Chloride Level 103 MEQ/L Carbon Dioxide Level 27.3 MEQ/L Anion Gap 8 MEQ/L Estimat Glomerular Filtration Rate 26 ML/MIN C-Reactive Protein LESS THAN 0.29 MG/DL Urine Color LIGHT-YELLOW Urine Turbidity CLEAR Urine pH 7.5 Urine Specific [place] 1.005 Urine Protein NEG mg/dL Urine Glucose (UA) NEG mg/dL Urine Ketones NEG mg/dL Urine Occult Blood NEG Urine Nitrite NEG Urine Bilirubin NEG Urine Urobilinogen LESS THAN 2.0 MG/DL Urine Leukocyte Esterase NEG Urine RBC LESS THAN 1 /hpf Urine WBC LESS THAN 1 /hpf Urine Squamous Epithelial Cells <1 /hpf Microscopic Urinalysis Comment CULT NOT INDICATED Prothrombin Time 11.3 SEC Prothromb Time International Ratio 1.1 RATIO Activated Partial Thromboplast Time 30.4 SEC Magnesium Level 2.4 MG/DL Total Creatine Kinase 2932 U/L Creatine Kinase MB 41.9 NG/ML Creatine Kinase MB % 1.4 % Troponin I LESS THAN 0.02 NG/ML B-Type Natriuretic Peptide 11 PG/ML Lipase 218 U/L Free Thyroxine 0.14 NG/DL Thyroid Stimulating Hormone 3rd Gen 85.700 uIU/ML Differential Diagnosis Differential diagnosis includes myxedema coma, hypothyroidism, HIV, mononucleosis, symptomatic anemia, cancer, leukemia. Narrative Course The patient was initially evaluated by the mid-level provider. Please refer to the history, physical, evaluation, treatment the patient notes a history of hypothyroidism, was taking Synthroid 100 mcg per day, however, stopped somewhere between 4-6. She notes increasing lethargy over the last several months, thinning eyebrows, 25 mL weight gain, thinning of the hair, petechial rash to the upper extremities, and numbness and tingling in the arms and legs. Physical examination reveals periorbital edema, thinning eyebrows, thinning hair and petechial rash in the upper extremities and subcutaneous lumps. The patient's TSH was 85.7, free T4 was 0.14. The patient has myxedema with symptoms including bradycardia on EKG. The patient was administered levothyroxine 100 mics intravenously. She will be admitted to the medical service. Physician Communication Physician Communication Discussed the patient with Dr. Chaparro who agrees with admission. Diagnosis Primary Impression: Hypothyroidism Qualified Codes: E03.9 - Hypothyroidism, unspecified Additional Impressions: Petechial rash Transaminitis Bradycardia Edema Qualified Codes: R60.0 - Localized edema Rhabdomyolysis Qualified Codes: M62.82 - Rhabdomyolysis ANDERSON (acute kidney injury) Admitting Information Admitting Physician Requests: Admit Scripts No Active Prescriptions or Reported Meds Condition: Stable Gigi Davis MD Feb 08, 2018 17:32
[2018-02-08] MEDS ORDERED: ALPRAZolam 0.5 MG TAB PO ONE (17:45)
--- NOTE | 2018-02-08 20:04 | HHI.HP ---
HPI Service [facility] Primary Care Physician Willow Chaparro MD Admission Diagnosis HYPOTHYROIDISM, MYXEDEMA Diagnoses: Travel History International Travel<30 Days: No Contact w/Intl Traveler <30 Da: No Traveled to Known Affected Are: No History of Present Illness History from patient, ER physician communication, interview of medical records. Patient reported: (ASS I N he needs [id number] so there are blotches swelling in throat and eyes muscle pains chest pains petechiae on bialteral arms gained about 25lbs lost a lot of hair always cold all slowly creeping up over past 3-4 months had frequent urination, no pain or burning quite a few times, i passed out, must have fallen asleep in my bed= but did not fall to floor abdominal bloating alternating dairrhea and constipation Review of Systems Except as stated in HPI: all other systems reviewed are Neg Past Family Social History Past Medical History hypothyroidism- stopped taking meds about 10 months ago bipolar Past Surgical History tonsilectomy Allergies: Coded Allergies: Sulfa (Sulfonamide Antibiotics) (Unverified Allergy, Unknown, 02/08/18) Family History dm in family everybody had thyroid issues in my sibilings sister- breast cancer mother- renal failure 4 of sibilings- hemochromatosis Social History smokes about half a pack a day no etoh abuse no drugs abuse- Physical Exam Vital Signs Vital Signs Date Time Temp Pulse Resp B/P (MAP) Pulse Ox O2 Delivery O2 Flow Rate FiO2 02/08/18 18:15 56 18 139/66 (90) 99 Room Air 02/08/18 14:47 99 Room Air 02/08/18 14:47 99 Room Air 02/08/18 14:21 63 18 98 Room Air 02/08/18 14:21 68 18 99 Room Air 02/08/18 12:03 97.2 64 17 150/72 (98) 99 Physical Exam GENERAL: This is a well-nourished, well-developed patient, in no apparent distress. SKIN: petechiae on bilateral upper extremity HEAD: Atraumatic. Normocephalic. No temporal or scalp tenderness. thin hair EYES: No scleral icterus. No injection or drainage. Periorbital edema ENT: Nose without bleeding, purulent drainage or septal hematoma. Airway patent. NECK: Trachea midline. No JVD CARDIOVASCULAR: Regular rate and rhythm without murmurs, gallops, or rubs. RESPIRATORY: Clear to auscultation. Breath sounds equal bilaterally. No wheezes , rales, or rhonchi. GASTROINTESTINAL: Abdomen soft, non-tender, nondistended. No guarding. MUSCULOSKELETAL: Extremities without clubbing, cyanosis, or edema. . No calf tenderness. NEUROLOGICAL: Awake and alert. Motor and sensory grossly within normal limits. . Normal speech. Laboratory Laboratory Tests Test 02/08/18 12:45 02/08/18 14:50 02/08/18 14:55 White Blood Count 4.3 Red Blood Count 3.88 Hemoglobin 13.4 Hematocrit 38.5 Mean Corpuscular Volume 99.4 Mean Corpuscular Hemoglobin 34.6 Mean Corpuscular Hemoglobin Concent 34.8 Red Cell Distribution Width 13.4 Platelet Count 170 Mean Platelet Volume 8.5 Neutrophils (%) (Auto) 58.2 Lymphocytes (%) (Auto) 27.7 Monocytes (%) (Auto) 10.0 Eosinophils (%) (Auto) 2.4 Basophils (%) (Auto) 1.7 Neutrophils # (Auto) 2.5 Lymphocytes # (Auto) 1.2 Monocytes # (Auto) 0.4 Eosinophils # (Auto) 0.1 Basophils # (Auto) 0.1 CBC Comment DIFF FINAL Differential Comment Erythrocyte Sedimentation Rate 21 Blood Urea Nitrogen 21 Creatinine 1.94 Random Glucose 93 Total Protein 8.5 Albumin 5.1 Calcium Level 9.3 Alkaline Phosphatase 74 Aspartate Amino Transf (AST/SGOT) 231 Alanine Aminotransferase (ALT/SGPT) 248 Total Bilirubin 0.5 Sodium Level 138 Potassium Level 4.4 Chloride Level 103 Carbon Dioxide Level 27.3 Anion Gap 8 Estimat Glomerular Filtration Rate 26 C-Reactive Protein LESS THAN 0.29 Urine Color LIGHT-YELLOW Urine Turbidity CLEAR Urine pH 7.5 Urine Specific [place] 1.005 Urine Protein NEG Urine Glucose (UA) NEG Urine Ketones NEG Urine Occult Blood NEG Urine Nitrite NEG Urine Bilirubin NEG Urine Urobilinogen LESS THAN 2.0 Urine Leukocyte Esterase NEG Urine RBC LESS THAN 1 Urine WBC LESS THAN 1 Urine Squamous Epithelial Cells <1 Microscopic Urinalysis Comment CULT NOT INDICATED Prothrombin Time 11.3 Prothromb Time International Ratio 1.1 Activated Partial Thromboplast Time 30.4 Magnesium Level 2.4 Total Creatine Kinase 2932 Creatine Kinase MB 41.9 Creatine Kinase MB % 1.4 Troponin I LESS THAN 0.02 B-Type Natriuretic Peptide 11 Lipase 218 Free Thyroxine 0.14 Free Triiodothyronine (T3) pg/dL 0.56 Thyroid Stimulating Hormone 3rd Gen 85.700 Result Diagram: 02/08/18 1245 02/08/18 1245 Imaging Last 48 hours Impressions Chest X-Ray 02/08/18 1433 Signed Impressions: Service Date/Time: Thursday, February 08, 2018 14:46 - CONCLUSION: No acute disease. Kang Denise MD FACR [place] VTE Risk Assessment Caprini VTE Risk Assessment: Mod/High Risk (score >= 2) Caprini Risk Assessment Model Point Value = 1 Point Value = 2 Point Value = 3 Point Value = 5 Age 41-60 Minor surgery BMI > 25 kg/m2 Swollen legs Varicose veins or History of unexplained or recurrent spontaneous Oral contraceptives or hormone replacement Sepsis (< 1 month) Serious lung disease, including pneumonia (< 1 month) Abnormal pulmonary function Acute myocardial infarction Congestive heart failure (< 1 month) History of inflammatory bowel disease Medical patient at bed rest Age 61-74 Arthroscopic surgery Major open surgery (> 45 min) Laparoscopic surgery (> 45 min) Malignancy Confined to bed (> 72 hours) Immobilizing plaster cast Central venous access Age >= 75 History of VTE Family history of VTE Factor V Leiden Prothrombin [id number] Lupus anticoagulant Anticardiolipin antibodies Elevated serum homocysteine Heparin-induced thrombocytopenia Other congenital or acquired thrombophilia Stroke (< 1 month) Elective arthroplasty Hip, pelvis, or leg fracture Acute spinal cord injury (< 1 month) Prophylaxis Regimen Total Risk Factor Score Risk Level Prophylaxis Regimen 0-1 Low Early ambulation 2 Moderate Order ONE of the following: *Sequential Compression Device (SCD) *Heparin 5000 units SQ BID 3-4 Higher Order ONE of the following medications: *Heparin 5000 units SQ TID *Enoxaparin/Lovenox 40 mg SQ daily (WT < 150 kg, CrCl > 30 mL/min) *Enoxaparin/Lovenox 30 mg SQ daily (WT < 150 kg, CrCl > 10-29 mL/min) *Enoxaparin/Lovenox 30 mg SQ BID (WT < 150 kg, CrCl > 30 mL/min) AND/OR *Sequential Compression Device (SCD) 5 or more Highest Order ONE of the following medications: *Heparin 5000 units SQ TID (Preferred with Epidurals) *Enoxaparin/Lovenox 40 mg SQ daily (WT < 150 kg, CrCl > 30 mL/min) *Enoxaparin/Lovenox 30 mg SQ daily (WT < 150 kg, CrCl > 10-29 mL/min) *Enoxaparin/Lovenox 30 mg SQ BID (WT < 150 kg, CrCl > 30 mL/min) AND *Sequential Compression Device (SCD) Assessment and Plan Assessment and Plan Impression: myxedema rhabdomyolysis acute on chronic renal failure elevated LFTs hypothyroidism- stopped taking meds about 10 months ago bipolar Plan: iv hydration follow ck will follow renal function synthroid 100mcg iv one dose given this pm in er will give another synthorid 100mcg iv one dose in am then to start 100mcg po daily ER MD also discussed with information assurance specialist for above recommendations dvt prophylaxis with ambulation not scd due to petechiae forming easy with contact not lovenox due to petechiae suspects platelet dysfunction as count is normal outpatient hematology eval Discussed Condition With patient, ER MD, nursing staff Physician Certification 2 Midnight Certification Type: Admission for Inpatient Services Order for Inpatient Services The services are ordered in accordance with Medicare regulations or non- Medicare payer requirements, as applicable. In the case of services not specified as inpatient-only, they are appropriately provided as inpatient services in accordance with the 2-midnight benchmark. Estimated LOS (days): 2 days is the estimated time the patient will need to remain in the hospital, assuming treatment plan goals are met and no additional complications. Post-Hospital Plan: Home Willow Chaparro MD Feb 08, 2018 20:04
[2018-02-08] MEDS: SODIUM CHLORIDE 0.9% FLUSH 10 ML FLUSH IV FLUSH SCH (22:45)
[2018-02-08] MEDS: SODIUM CHLOR 0.9% 1000 ML INJ 1,000 ML IV SCH (22:45)
[2018-02-09] VITALS (7 sets, daily range): BP systolic 108–131; BP diastolic 61–74; PULSE 47–60; RESP 16–20; TEMP 96.5–98.1; O2SAT 94–100
[2018-02-09] MEDS: SODIUM CHLOR 0.9% 1000 ML INJ 1,000 ML IV SCH ×4 (00:08→16:20)
[2018-02-09 00:33] LABS: TROPONIN I LESS THAN 0.02 NG/ML (0.02-0.05)
[2018-02-09] MEDS ORDERED: ALPRAZolam 0.5 MG TAB PO ONE (03:45)
[2018-02-09] MEDS ORDERED: LEVOTHYROXINE SODIUM 100 MCG VIAL IV PUSH ONE (06:00)
[2018-02-09] MEDS: SODIUM CHLORIDE 0.9% FLUSH 10 ML FLUSH IV FLUSH SCH ×2 (09:00→21:00)
[2018-02-09 09:32] LABS: AUTOMATED NEUTROPHIL # 2.1 TH/MM3 (1.8-7.7); BASOPHIL # 0.1 TH/MM3 (0-0.2); BASOPHIL % 2.1 % (0.0-2.0); EOSINOPHIL # 0.2 TH/MM3 (0-0.4); HEMATOCRIT 33.4 % (35.0-46.0); HEMOGLOBIN 11.5 GM/DL (11.6-15.3); LYMPH % 34.5 % (9.0-44.0); LYMPHOCYTE # 1.4 TH/MM3 (1.0-4.8); MEAN CELL VOLUME 100.3 FL (80.0-100.0); MEAN CORPUSCULAR HEMOGLOBIN 34.5 PG (27.0-34.0); MEAN CORPUSCULAR HGB CONC 34.4 % (32.0-36.0); MEAN PLATELET VOLUME 9.3 FL (7.0-11.0); MONO % 8.5 % (0.0-8.0); MONOCYTE # 0.4 TH/MM3 (0-0.9); NEUT % 49.9 % (16.0-70.0); PLATELET COUNT 135 TH/MM3 (150-450); RED BLOOD COUNT 3.33 MIL/MM3 (4.00-5.30); RED CELL DISTRIBUTION WIDTH 13.5 % (11.6-17.2); WHITE BLOOD COUNT 4.2 TH/MM3 (4.0-11.0)
--- NOTE | 2018-02-09 10:39 | PD.PN.STU ---
Subjective Remarks The patient is a62 year old female with the complaint of "rash that got really bad". She said her rash began about a week ago and looked like normal bruising but over the past 3 days has become more "petechial". It is on both arms but no where else. The rash does not itch or hurt and there are no alleviating or aggravating factors that she knows of. She also complains of a numbness and burning in both of her arms that began 2 weeks ago. She says her face has been swollen for about 2 months but became worse in the last week. She said that she has never had any of these symptoms before. The patient also complains of a chest "pressure" that began 3 days ago but got worse yesterday. She says it comes and goes and there are no alleviating or aggravating factors. She denies any SOB, Nausea, vomiting, or diaphoresis with this pressure sensation. She says that she has been flipping between really hot and cold over the past couple of weeks. The patient has a history of hypothyroidism but stopped her levothyroxine 1 year ago due to psych issues. She was hospitalized for depression and currently takes no medications. She sys she has had some muscle aches, mostly in her thighs. She is able to comfortably get up from bed or up from a chair. Over the past week she really has not felt well so she has been sitting a lot at home. She says she has lost about 25 lbs recently. She denies any abdominal pain, diarrhea, change in vision, or muscle weakness. PMH: depression, hypothyroidism Home medications: none Surgical hx: tonsillectomy Social hx: smokes 1/2 pack/day for 40 years, denies alcohol or other drug use. Objective Vitals Vital Signs Date Time Temp Pulse Resp B/P (MAP) Pulse Ox O2 Delivery O2 Flow Rate FiO2 02/09/18 08:00 97.9 50 16 108/70 (83) 97 02/09/18 03:51 60 02/09/18 03:27 96.5 55 20 118/62 (80) 99 02/09/18 00:00 Room Air 02/09/18 00:00 97.9 50 17 112/61 (78) 94 02/08/18 23:48 50 02/08/18 21:07 50 02/08/18 21:00 Room Air 02/08/18 20:24 02/08/18 20:23 49 16 139/68 (91) 97 Room Air 02/08/18 18:15 56 18 139/66 (90) 99 Room Air 02/08/18 14:47 99 Room Air 02/08/18 14:47 99 Room Air 02/08/18 14:21 63 18 98 Room Air 02/08/18 14:21 68 18 99 Room Air 02/08/18 12:03 97.2 64 17 150/72 (98) 99 I/O 02/08/18 02/08/18 02/08/18 02/09/18 02/09/18 02/09/18 06:59 14:59 22:59 06:59 14:59 22:59 Intake Total 2000 ml 1240 ml Output Total 0 ml Balance 2000 ml 1240 ml Intake Oral 240 ml IV Total 2000 ml 1000 ml Output Urine Total 0 ml # Voids 2 # Bowel Movements 0 Result Diagram: 02/09/18 0850 02/08/18 1245 Other Results Laboratory Tests Test 02/08/18 12:45 02/08/18 14:50 02/08/18 14:55 02/08/18 23:26 White Blood Count 4.3 TH/MM3 Red Blood Count 3.88 MIL/MM3 Hemoglobin 13.4 GM/DL Hematocrit 38.5 % Mean Corpuscular Volume 99.4 FL Mean Corpuscular Hemoglobin 34.6 PG Mean Corpuscular Hemoglobin Concent 34.8 % Red Cell Distribution Width 13.4 % Platelet Count 170 TH/MM3 Mean Platelet Volume 8.5 FL Neutrophils (%) (Auto) 58.2 % Lymphocytes (%) (Auto) 27.7 % Monocytes (%) (Auto) 10.0 % Eosinophils (%) (Auto) 2.4 % Basophils (%) (Auto) 1.7 % Neutrophils # (Auto) 2.5 TH/MM3 Lymphocytes # (Auto) 1.2 TH/MM3 Monocytes # (Auto) 0.4 TH/MM3 Eosinophils # (Auto) 0.1 TH/MM3 Basophils # (Auto) 0.1 TH/MM3 CBC Comment DIFF FINAL Differential Comment Erythrocyte Sedimentation Rate 21 mm/hr Blood Urea Nitrogen 21 MG/DL Creatinine 1.94 MG/DL Random Glucose 93 MG/DL Total Protein 8.5 GM/DL Albumin 5.1 GM/DL Calcium Level 9.3 MG/DL Alkaline Phosphatase 74 U/L Aspartate Amino Transf (AST/SGOT) 231 U/L Alanine Aminotransferase (ALT/SGPT) 248 U/L Total Bilirubin 0.5 MG/DL Sodium Level 138 MEQ/L Potassium Level 4.4 MEQ/L Chloride Level 103 MEQ/L Carbon Dioxide Level 27.3 MEQ/L Anion Gap 8 MEQ/L Estimat Glomerular Filtration Rate 26 ML/MIN C-Reactive Protein LESS THAN 0.29 MG/DL Urine Color LIGHT-YELLOW Urine Turbidity CLEAR Urine pH 7.5 Urine Specific [place] 1.005 Urine Protein NEG mg/dL Urine Glucose (UA) NEG mg/dL Urine Ketones NEG mg/dL Urine Occult Blood NEG Urine Nitrite NEG Urine Bilirubin NEG Urine Urobilinogen LESS THAN 2.0 MG/DL Urine Leukocyte Esterase NEG Urine RBC LESS THAN 1 /hpf Urine WBC LESS THAN 1 /hpf Urine Squamous Epithelial Cells <1 /hpf Microscopic Urinalysis Comment CULT NOT INDICATED Prothrombin Time 11.3 SEC Prothromb Time International Ratio 1.1 RATIO Activated Partial Thromboplast Time 30.4 SEC Magnesium Level 2.4 MG/DL Total Creatine Kinase 2932 U/L 3873 U/L Creatine Kinase MB 41.9 NG/ML 51.7 NG/ML Creatine Kinase MB % 1.4 % 1.3 % Troponin I LESS THAN 0.02 NG/ML LESS THAN 0.02 NG/ML B-Type Natriuretic Peptide 11 PG/ML Lipase 218 U/L Free Thyroxine 0.14 NG/DL Free Triiodothyronine (T3) pg/dL 0.56 PG/ML Thyroid Stimulating Hormone 3rd Gen 85.700 uIU/ML Test 02/09/18 08:50 White Blood Count 4.2 TH/MM3 Red Blood Count 3.33 MIL/MM3 Hemoglobin 11.5 GM/DL Hematocrit 33.4 % Mean Corpuscular Volume 100.3 FL Mean Corpuscular Hemoglobin 34.5 PG Mean Corpuscular Hemoglobin Concent 34.4 % Red Cell Distribution Width 13.5 % Platelet Count 135 TH/MM3 Mean Platelet Volume 9.3 FL Neutrophils (%) (Auto) 49.9 % Lymphocytes (%) (Auto) 34.5 % Monocytes (%) (Auto) 8.5 % Eosinophils (%) (Auto) 5.0 % Basophils (%) (Auto) 2.1 % Neutrophils # (Auto) 2.1 TH/MM3 Lymphocytes # (Auto) 1.4 TH/MM3 Monocytes # (Auto) 0.4 TH/MM3 Eosinophils # (Auto) 0.2 TH/MM3 Basophils # (Auto) 0.1 TH/MM3 CBC Comment DIFF FINAL Differential Comment Hematology Comments Objective Remarks GENERAL: A well developed and well nourished female in no acute distress. SKIN: Warm and dry. Petechial rash on posterior aspect of upper extremities B/L with mild bruising on her wrists. HEAD: Atraumatic. Normocephalic. EYES: Pupils equal and round. No scleral icterus. No injection or drainage. Lower eyelid edema. ENT: No nasal bleeding or discharge. NECK: Trachea midline. No JVD. Mild edema of the neck. CARDIOVASCULAR: Regular rate and rhythm. No S3, S4, or murmur. RESPIRATORY: No accessory muscle use. Clear to auscultation. Breath sounds diminished bilaterally. GASTROINTESTINAL: Abdomen soft, non-tender, nondistended. MUSCULOSKELETAL: Extremities without clubbing, cyanosis, or edema. NEUROLOGICAL: Awake and alert. Motor grossly within normal limits. Normal speech. PSYCHIATRIC: Appropriate mood and affect; insight and judgment normal. Medications and IVs Current Medications Medications (Trade) Dose Ordered Sig/Praneeth Route PRN Reason Start Time Stop Time Status Last Admin Dose Admin Sodium Chloride (NS Flush) 2 ml UNSCH PRN IVF FLUSH AFTER USING IV ACCESS 02/08/18 14:45 Sodium Chloride 1,000 ml @ 150 mls/hr Q6H40M IV 02/08/18 17:16 02/09/18 10:12 Sodium Chloride (NS Flush) 2 ml UNSCH PRN IV FLUSH FLUSH AFTER USING IV ACCESS 02/08/18 17:30 Sodium Chloride (NS Flush) 2 ml BID IV FLUSH 02/08/18 21:00 02/08/18 22:45 Ondansetron HCl (Zofran Inj) 4 mg Q6H PRN IVP NAUSEA OR VOMITING 02/08/18 17:30 Naloxone HCl (Narcan Inj) 0.4 mg UNSCH PRN IV PUSH SEE LABEL COMMENTS 02/08/18 17:30 Levothyroxine Sodium (Synthroid) 100 mcg DAILY@0600 PO 02/10/18 06:00 02/09/18 07:29 A/P Assessment and Plan 1. Thyroid myxedema -IV Synthroid 100mcg 2. Rhabdomyolysis -IV hydration -Serial CK's 3. Acute Kidney Injury -hydration and avoid nephrotoxic medications -Follow BUN and Cr 4. Prophylaxis -no DVT prophylaxis due to easy bruising and petechiae.? ITP -platelet count is lower 5. Elevated LFTs -check hepatitis panel The exam, history, and the medical decision-making described in the above by the medical student have been reviewed and confirmed. I reviewed and agree with the findings presented. I attest that I had a [id number] encounter with the patient on the same day, and personally performed and documented my assessment and findings in the medical record. Patient reports she is feeling better but still very fatigued. GENERAL: Patient appears somewhat edematous. SKIN: Bilateral upper extremity petechiae. CARDIOVASCULAR: Normal rate and regular rhythm without murmurs, gallops, or rubs. RESPIRATORY: Good respiratory efforts. Breath sounds equal and clear to auscultation bilaterally. GASTROINTESTINAL: Abdomen soft, non-tender, non-distended. Normal active bowel sounds MUSCULOSKELETAL: Extremities without cyanosis, or edema. NEURO: Alert & Oriented x4 to person, place, time, situation. Moves all ext x4 PSYCH: Appropriate mood and affect. Patient is improving. Continue IV hydration and Synthroid. If she continues to improve, she may be discharged tomorrow. Osbaldo Maria Feb 09, 2018 10:39 Jose Canales MD Feb 09, 2018 13:03
[2018-02-09 12:49] LABS: ALBUMIN 3.7 GM/DL (3.4-5.0); ALKALINE PHOSPHATASE 55 U/L (45-117); ALT (GPT) 135 U/L (10-53); AST (GOT) 119 U/L (15-37); BLOOD UREA NITROGEN 15 MG/DL (7-18); CALCIUM 7.9 MG/DL (8.5-10.1); CHLORIDE 111 MEQ/L (98-107); CREATININE 1.64 MG/DL (0.50-1.00); GLOMERULAR FILTRATION RATE 32 ML/MIN (>89); GLUCOSE,RANDOM 55 MG/DL (74-106); SODIUM (NA) 144 MEQ/L (136-145); TOTAL BILIRUBIN ADULT 0.4 MG/DL (0.2-1.0); TOTAL PROTEIN 6.5 GM/DL (6.4-8.2); TROPONIN I LESS THAN 0.02 NG/ML (0.02-0.05)
--- NOTE | 2018-02-09 13:37 | PD.PSY.CON ---
Provisional Diagnosis Admission Date Feb 08, 2018 at 17:20 Franklin I. Adjustment disorder with depressed mood, history of bipolar disorder, personality disorder, anxiety, benzodiazepine abuse Franklin II. Unspecified personality disorder Franklin III. Hypothyroidism History of Present Illness Service Psychiatry Consult Requested By Medical team Reason for Consult Symptoms of depression anxiety Primary Care Physician Willow Chaparro MD HPI The patient is a 62-year-old woman, domiciled alone in a motel, , she has a 38-year-old daughter, unemployed, supported by the long-term benefits of her , with psychiatric history of bipolar disorder, depression, anxiety, benzodiazepine abuse, personality disorder, drug-seeking behavior, multiple psychiatric hospitalizations, multiple suicidal attempts by OD, with medical history of hypothyroidism, who presented to the emergency department for evaluation chest pressure, petechial rash, facial swelling. She states she has been off of the levothyroxine for approximately 3 months. Was consulted to psychiatry due to symptoms of depression and anxiety. EMR was reviewed. On psychiatric evaluation today the patient is kind of hypoactive, apathetic, but cooperative. Patient reports that she feels much better today, but reports decreased energy, lack of motivation feeling kind of fatigued. The patient denies anhedonia, she denies hopelessness, she denies worthlessness, she denies suicidal and homicidal ideation, she denies visual and auditory hallucinations. She does report anxiety especially during night, also difficulty sleeping. Patient reported that she has not been taking her Xanax and Ativan for a long time now. Patient reports that she has been on Xanax in the past with good results. The patient is fully oriented 3, no fluctuation of consciousness, no attention deficit, no gross cognitive impairment present. She denies the use of alcohol and illegal drugs. Review of Systems Constitutional: COMPLAINS OF: Fatigue, DENIES: Diaphoretic episodes, Fever, Weight gain, Weight loss, Chills, Dizziness, Change in appetite, Night Sweats Endocrine: DENIES: Abnorml menstrual pattern, Heat/cold intolerance, Polydipsia , Polyuria, Polyphagia Eyes: DENIES: Blurred vision, Diplopia, Eye inflammation, Eye pain, Vision loss , Photosensitivity, Double Vision Ears, nose, mouth, throat: DENIES: Tinnitus, Hearing loss, Vertigo, Nasal discharge, Oral lesions, Throat pain, Hoarseness, Ear Pain, Running Nose, Epistaxis, Sinus Pain, Toothache, Odynophagia Respiratory: DENIES: Apneas, Cough, Snoring, Wheezing, Hemoptysis, Sputum production, Shortness of breath Cardiovascular: DENIES: Chest pain, Palpitations, Syncope, Dyspnea on Exertion , PND, Lower Extremity Edema, Orthopnea, Claudication Gastrointestinal: DENIES: Abdominal pain, Black stools, Bloody stools, Constipation, Diarrhea, Nausea, Vomiting, Difficulty Swallowing, Anorexia Genitourinary: DENIES: Abnormal vaginal bleeding, Dysmenorrhea, Dyspareunia, Sexual dysfunction, Urinary frequency, Urinary incontinence, Urgency, Hematuria , Dysuria, Nocturia, Vaginal discharge Musculoskeletal: DENIES: Joint pain, Muscle aches, Stiffness, Joint Swelling, Back pain, Neck pain Integumentary: DENIES: Abnormal pigmentation, Pruritus, Rash, Nail changes, Breast masses, Breast skin changes, Nipple discharge Hematologic/lymphatic: DENIES: Bruising, Lymphadenopathy Immunologic/allergic: DENIES: Eczema, Urticaria Neurologic: DENIES: Abnormal gait, Headache, Localized weakness, Paresthesias, Seizures, Speech Problems, Tremor, Poor Balance Psychiatric: COMPLAINS OF: Anxiety, DENIES: Confusion, Mood changes, Depression , Hallucinations, Agitation, Suicidal Ideation, Homicidal Ideation, Delusions Past Family Social History Coded Allergies: Sulfa (Sulfonamide Antibiotics) (Unverified Allergy, Unknown, 02/08/18) Discontinued Reported Medications Ascorbic Acid (Vitamin C) 500 Mg Capsule, 1 TAB PO DAILY 02/08/18 Selenium (Selenium) 200 Mcg Tab, 200 MG PO DAILY for Nutritional Supplement, TAB 0 Refills 02/08/18 Vitamin E Acetate (Vitamin E) 400 Unit Capsule, 1 TAB PO DAILY 02/08/18 Zinc Gluconate (Zinc Gluconate) 50 Mg Tab, 50 MG PO DAILY, TAB 02/08/18 B-Complex Vitamins (B Complex) 1 Cap, 1 CAP PO DAILY for Nutritional Supplement , CAP 0 Refills 02/08/18 Cholecalciferol (Vitamin D3) 1,000 Unit Tab, 1000 UNITS PO DAILY for Nutritional Supplement, BOTTLE 0 Refills 02/08/18 Albuterol 18 GM Inh (Ventolin Hfa 18 GM Inh) 90 Mcg/Act Aer, 2 PUFF INH Q4H Y for SHORTNESS OF BREATH, INHALER 0 Refills 02/08/18 Zolpidem (Zolpidem) 10 Mg Tab, 10 MG PO HS Y for INSOMNIA, TAB 0 Refills 02/08/18 Cyclobenzaprine (Flexeril) 10 Mg Tab, 10 MG PO TID for Muscle Spasm, TAB 0 Refills 02/08/18 Diazepam (Diazepam) 5 Mg Tab, 5 MG PO TID Y for ANXIETY, TAB 0 Refills 02/08/18 Rosuvastatin (Rosuvastatin) 20 Mg Tab, 20 MG PO DAILY for Cholesterol Management , TAB 0 Refills 02/08/18 Hydrocodone-Acetaminophen (Hydrocodone-Acetaminophen) 10-325 mg Tab, 1 TAB PO Q6H Y for PAIN, TAB 0 Refills 02/08/18 Pantoprazole (Protonix) 40 Mg Tab, 40 MG PO DAILY for Reflux, TAB 0 Refills 02/08/18 Levothyroxine (Levothyroxine) 100 Mcg Tab, 100 MCG PO DAILY for Thyroid, TAB 0 Refills 02/08/18 Discontinued Scripts Quetiapine XR (Seroquel XR) 50 Mg Tab, 50 MG PO DAILY for Psychosis, #30 TAB 0 Refills Prov:Brant Alejandro MD 11/02/16 Cyanocobalamin (B-12) 1,000 Mcg Cap, 1000 MCG PO DAILY for Nutritional Supplement, #15 BOTTLE 0 Refills Prov:Frantz Messer MD 09/09/16 Quetiapine (Quetiapine) 25 Mg Tab, 250 MG PO HS for Mental Health for 5 Days, TAB 5 Refills Prov:Frantz Messer MD 09/09/16 Mirtazapine (Mirtazapine) 15 Mg Tab, 45 MG PO HS for Mental Health for 5 Days, TAB 5 Refills Prov:Frantz Messer MD 09/09/16 Liothyronine (Cytomel) 25 Mcg Tab, 25 MCG PO DAILY for Thyroid for 5 Days, TAB 5 Refills Prov:Frantz Messer MD 09/09/16 Levothyroxine (Synthroid) 100 Mcg Tab, 100 MCG PO DAILY@0600 for Thyroid for 5 Days, TAB 5 Refills Prov:Frantz Messer MD 09/09/16 Fluoxetine (Prozac) 10 Mg Cap, 40 MG PO DAILY for Mental Health for 5 Days, CAP 5 Refills Prov:Frantz Messer MD 09/09/16 Current Medications Medications (Trade) Dose Ordered Sig/Praneeth Route Start Time Stop Time Status Last Admin (NS Flush) 2 ml UNSCH PRN IVF 02/08/18 14:45 Sodium Chloride 1,000 ml @ 150 mls/hr Q6H40M IV 02/08/18 17:16 02/09/18 10:12 (NS Flush) 2 ml UNSCH PRN IV FLUSH 02/08/18 17:30 (NS Flush) 2 ml BID IV FLUSH 02/08/18 21:00 02/08/18 22:45 (Zofran Inj) 4 mg Q6H PRN IVP 02/08/18 17:30 (Narcan Inj) 0.4 mg UNSCH PRN IV PUSH 02/08/18 17:30 (Synthroid) 100 mcg DAILY@0600 PO 02/10/18 06:00 02/09/18 07:29 Family Psych History No family psychiatric history Social History Patient was born and raised in [place], she lives in [facility] alone in hotels she is , she has a daughter, unemployed, Patient's Strengths (min. 2) Verbal communication Physical Exam Psychomotor retardation, but no EPS, no stiffness present Vital Signs Vital Signs Date Time Temp Pulse Resp B/P (MAP) Pulse Ox O2 Delivery O2 Flow Rate FiO2 02/09/18 12:00 97.9 51 16 131/74 (93) 100 02/09/18 08:00 Room Air I/O 02/09/18 02/09/18 02/10/18 08:00 16:00 00:00 Intake Total 1240 ml Output Total 0 ml Balance 1240 ml Lab Results Test 02/08/18 14:50 02/08/18 14:55 02/08/18 23:26 02/09/18 08:50 Urine Color LIGHT-YELLOW Urine Turbidity CLEAR Urine pH 7.5 Urine Specific [place] 1.005 Urine Protein NEG mg/dL Urine Glucose (UA) NEG mg/dL Urine Ketones NEG mg/dL Urine Occult Blood NEG Urine Nitrite NEG Urine Bilirubin NEG Urine Urobilinogen LESS THAN 2.0 MG/DL Urine Leukocyte Esterase NEG Urine RBC LESS THAN 1 /hpf Urine WBC LESS THAN 1 /hpf Urine Squamous Epithelial Cells <1 /hpf Microscopic Urinalysis Comment CULT NOT INDICATED Prothrombin Time 11.3 SEC Prothromb Time International Ratio 1.1 RATIO Activated Partial Thromboplast Time 30.4 SEC Magnesium Level 2.4 MG/DL Total Creatine Kinase 2932 U/L 3873 U/L Creatine Kinase MB 41.9 NG/ML 51.7 NG/ML Creatine Kinase MB % 1.4 % 1.3 % Troponin I LESS THAN 0.02 NG/ML LESS THAN 0.02 NG/ML B-Type Natriuretic Peptide 11 PG/ML Lipase 218 U/L Free Thyroxine 0.14 NG/DL Free Triiodothyronine (T3) pg/dL 0.56 PG/ML Thyroid Stimulating Hormone 3rd Gen 85.700 uIU/ML White Blood Count 4.2 TH/MM3 Red Blood Count 3.33 MIL/MM3 Hemoglobin 11.5 GM/DL Hematocrit 33.4 % Mean Corpuscular Volume 100.3 FL Mean Corpuscular Hemoglobin 34.5 PG Mean Corpuscular Hemoglobin Concent 34.4 % Red Cell Distribution Width 13.5 % Platelet Count 135 TH/MM3 Mean Platelet Volume 9.3 FL Neutrophils (%) (Auto) 49.9 % Lymphocytes (%) (Auto) 34.5 % Monocytes (%) (Auto) 8.5 % Eosinophils (%) (Auto) 5.0 % Basophils (%) (Auto) 2.1 % Neutrophils # (Auto) 2.1 TH/MM3 Lymphocytes # (Auto) 1.4 TH/MM3 Monocytes # (Auto) 0.4 TH/MM3 Eosinophils # (Auto) 0.2 TH/MM3 Basophils # (Auto) 0.1 TH/MM3 CBC Comment DIFF FINAL Differential Comment Hematology Comments Test 02/09/18 11:39 Blood Urea Nitrogen 15 MG/DL Creatinine 1.64 MG/DL Random Glucose 55 MG/DL Total Protein 6.5 GM/DL Albumin 3.7 GM/DL Calcium Level 7.9 MG/DL Alkaline Phosphatase 55 U/L Aspartate Amino Transf (AST/SGOT) 119 U/L Alanine Aminotransferase (ALT/SGPT) 135 U/L Total Bilirubin 0.4 MG/DL Sodium Level 144 MEQ/L Potassium Level 3.8 MEQ/L Chloride Level 111 MEQ/L Carbon Dioxide Level 28.0 MEQ/L Anion Gap 5 MEQ/L Estimat Glomerular Filtration Rate 32 ML/MIN Total Creatine Kinase 3548 U/L Creatine Kinase MB 39.6 NG/ML Creatine Kinase MB % 1.1 % Troponin I LESS THAN 0.02 NG/ML Mental Status Examination Appearance: Appropriate Consciousness: Alert Orientation: x4 Motor Activity: Normal gait Speech: Unremarkable Language: Adequate Fund of Knowledge: Adequate Attention and Concentration: Adequate Memory: Unremarkable Mood: Appropriate Affect: Appropriate Thought Process & Associations: Intact Thought Content: Appropriate Hallucination Type: None Delusion Type: None Suicidal Ideation: No Suicidal Plan: No Suicidal Intention: No Homicidal Ideation: No Homicidal Plan: No Homicidal Intention: No Insight: Adequate Judgment: Adequate Assessment & Plan Problem List: (1) Adjustment disorder with mixed anxiety and depressed mood ICD Codes: F43.23 - Adjustment disorder with mixed anxiety and depressed mood Assessment & Plan: Patient denies symptomatology of depression. She denies hopelessness, she denies helplessness, she denies anhedonia, she denies suicidal and homicidal ideation, she denies visual and auditory hallucinations she does report fatigue, low energy, poor sleep and anxiety, but this symptoms are most probably related with hypothyroidism. Patient does have a documented history of personality disorder, drug-seeking behavior, benzodiazepines abuse, for which I recommend to limit the use of benzodiazepine as much as possible be very careful with prescribe benzodiazepine after discharge without the appropriate outpatient supervision. For anxiety a low dose of Xanax 0.25 or 0.5 or clonazepam 0.5-1 mg every 8 hours in PRN basis could be prescribed. Also Benadryl 25 mg twice daily can help. Trazodone 50 mg at bedtime to help with insomnia and depression. Extensive psychoeducation, supportive motivation provided. The patient does not meet criteria for involuntary psychiatric admission at this moment. Assessment & Plan Estimated LOS: Brant Parish MD Feb 09, 2018 13:37
--- NOTE | 2018-02-09 13:46 | HHI.PR ---
Objective Vitals Vital Signs Date Time Temp Pulse Resp B/P (MAP) Pulse Ox O2 Delivery O2 Flow Rate FiO2 02/09/18 12:00 97.9 51 16 131/74 (93) 100 02/09/18 12:00 53 02/09/18 08:00 Room Air 02/09/18 08:00 52 02/09/18 08:00 97.9 50 16 108/70 (83) 97 02/09/18 03:51 60 02/09/18 03:27 96.5 55 20 118/62 (80) 99 02/09/18 00:00 Room Air 02/09/18 00:00 97.9 50 17 112/61 (78) 94 02/08/18 23:48 50 02/08/18 21:07 50 02/08/18 21:00 Room Air 02/08/18 20:24 02/08/18 20:23 49 16 139/68 (91) 97 Room Air 02/08/18 18:15 56 18 139/66 (90) 99 Room Air 02/08/18 14:47 99 Room Air 02/08/18 14:47 99 Room Air 02/08/18 14:21 63 18 98 Room Air 02/08/18 14:21 68 18 99 Room Air I/O 02/08/18 02/08/18 02/08/18 02/09/18 02/09/18 02/09/18 07:00 15:00 23:00 07:00 15:00 23:00 Intake Total 2000 ml 1240 ml Output Total 0 ml Balance 2000 ml 1240 ml Intake Oral 240 ml IV Total 2000 ml 1000 ml Output Urine Total 0 ml # Voids 2 # Bowel Movements 0 Result Diagram: 02/09/18 0850 02/09/18 1139 Jose Canales MD Feb 09, 2018 13:46
[2018-02-09] MEDS: ACETAMINOPHEN 500 MG CPLT PO PRN ×2 (15:00→21:28)
--- NOTE | 2018-02-09 20:08 | EKG ---
Date Performed: 02/08/2018 Time Performed: 14:32:06 PTAGE: 62 years EKG: SINUS BRADYCARDIA NONSPECIFIC ST CHANGES BORDERLINE ECG NO PREVIOUS TRACING DOCTOR: Rell Sharma Interpretating Date/Time 02/09/2018 20:07:30
--- NOTE | 2018-02-09 20:10 | EKG ---
Date Performed: 02/08/2018 Time Performed: 22:35:43 PTAGE: 62 years EKG: SINUS BRADYCARDIA LOW QRS VOLTAGE IN EXTREMITY LEADS NONSPECIFIC T-WAVE ABNORMALITY Since t he previous tracing, no significant change noted BORDERLINE ECG PREVIOUS TRACING : 02/08/2018 14.32 DOCTOR: Rell Sharma Interpretating Date/Time 02/09/2018 20:09:18
--- NOTE | 2018-02-09 20:10 | EKG ---
Date Performed: 02/09/2018 Time Performed: 04:09:00 PTAGE: 62 years EKG: Sinus bradycardia Lateral T wave changes are nonspecific Low QRS voltages in limb leads Sin ce the previous tracing, no significant change noted Abnormal ECG PREVIOUS TRACING : 02/06/2018 00.20 DOCTOR: Rell Sharma Interpretating Date/Time 02/09/2018 20:09:33
[2018-02-09] MEDS: LORazepam 1 MG TAB PO PRN (21:27)
[2018-02-10] VITALS: BP 107/58; PULSE 50; PULSE 52; RESP 16; TEMP 97.5; O2SAT 95
[2018-02-10 04:00] VITALS: BP 115/66; PULSE 57; PULSE 63; RESP 17; TEMP 98; O2SAT 96
[2018-02-10] MEDS: LORazepam 1 MG TAB PO PRN ×2 (04:09→11:22)
[2018-02-10] MEDS: ACETAMINOPHEN 500 MG CPLT PO PRN ×2 (04:09→11:23)
[2018-02-10] MEDS: SODIUM CHLOR 0.9% 1000 ML INJ 1,000 ML IV SCH ×2 (05:16→11:56)
[2018-02-10] MEDS ORDERED: LEVOTHYROXINE SODIUM 100 MCG TAB PO SCH (06:00)
[2018-02-10 08:00] VITALS: BP 116/66; PULSE 65; RESP 17; TEMP 97.5; O2SAT 93
[2018-02-10] MEDS ORDERED: LEVO.1 PO (08:52)
--- NOTE | 2018-02-10 08:53 | HHI.DCPOC ---
Discharge Care Plan Diagnosis: (1) Hypothyroidism (2) Rhabdomyolysis (3) Petechial rash (4) Transaminitis (5) ANDERSON (acute kidney injury) Goals to Promote Your Health * To prevent worsening of your condition and complications * To maintain your health at the optimal level Directions to Meet Your Goals Take your medications as prescribed Follow your dietary instruction Follow activity as directed Keep your appointments as scheduled Take your immunizations and boosters as scheduled If your symptoms worsen call your PCP, if no PCP go to Urgent Care Center or Emergency Room Smoking is Dangerous to Your Health. Avoid second hand smoke Call the 24-hour hour crisis hotline for domestic abuse at Jose Canales MD Feb 10, 2018 08:53
--- NOTE | 2018-02-10 08:53 | HHI.DS ---
Discharge Summary Admission Date Feb 08, 2018 at 17:20 Discharge Date: Feb 10, 2018 Admitting Diagnosis HYPOTHYROIDISM, MYXEDEMA (1) Hypothyroidism ICD Code: E03.9 - Hypothyroidism, unspecified Status: Acute (2) Edema ICD Code: R60.9 - Edema, unspecified Status: Acute (3) Rhabdomyolysis ICD Code: M62.82 - Rhabdomyolysis Status: Acute (4) Transaminitis ICD Code: R74.0 - Nonspecific elevation of levels of transaminase and lactic acid dehydrogenase [LDH] Status: Acute (5) ANDERSON (acute kidney injury) ICD Code: N17.9 - Acute kidney failure, unspecified Status: Acute (6) Adjustment disorder with mixed anxiety and depressed mood ICD Code: F43.23 - Adjustment disorder with mixed anxiety and depressed mood Procedures None Brief History - From Admission HPI from the ER team: 62-year-old female presenting to the emergency department for evaluation chest pressure, petechial rash, facial swelling. Patient states the swelling started several weeks ago. The petechial rash and chest pressure started yesterday, patient reports radiation down both of her arms the right is greater than left. She also reports urinary frequency feels as if she is not emptying her bladder completely. She denies any shortness of breath, swelling to her lower extremities. Patient denies any significant past medical history other than hypothyroidism. She states she has been off of the levothyroxine for approximately 3 months. She initially attributed her symptoms to her thyroid. Patient presented today because the symptoms have been worsening. She denies any chronic alcohol use, illicit drug use or tobacco use. There are no alleviating factors. Symptom onset was gradual, symptoms are moderate in nature. Patient has not been to a primary doctor in several years. She denies any cardiac history. Patient also reports widespread muscle aches. She reports feeling as if she has been working out hard which she has not. She states this pain is a 5 out of 10, there are no alleviating factors pain is exacerbated with movement. CBC/BMP: 02/09/18 0850 02/09/18 1139 Significant Findings Laboratory Tests Test 02/08/18 12:45 02/08/18 14:50 02/08/18 14:55 02/08/18 23:26 Red Blood Count 3.88 MIL/MM3 (4.00-5.30) Mean Corpuscular Hemoglobin 34.6 PG (27.0-34.0) Monocytes (%) (Auto) 10.0 % (0.0-8.0) Blood Urea Nitrogen 21 MG/DL (7-18) Creatinine 1.94 MG/DL (0.50-1.00) Total Protein 8.5 GM/DL (6.4-8.2) Albumin 5.1 GM/DL (3.4-5.0) Aspartate Amino Transf (AST/SGOT) 231 U/L (15-37) Alanine Aminotransferase (ALT/SGPT) 248 U/L (10-53) Estimat Glomerular Filtration Rate 26 ML/MIN (>89) Activated Partial Thromboplast Time 30.4 SEC (24.3-30.1) Total Creatine Kinase 2932 U/L (26-192) 3873 U/L (26-192) Creatine Kinase MB 41.9 NG/ML (0.5-3.6) 51.7 NG/ML (0.5-3.6) Troponin I LESS THAN 0.02 NG/ML LESS THAN 0.02 NG/ML Free Thyroxine 0.14 NG/DL (0.76-1.46) Free Triiodothyronine (T3) pg/dL 0.56 PG/ML (2.18-3.98) Thyroid Stimulating Hormone 3rd Gen 85.700 uIU/ML (0.358-3.740) Test 02/09/18 08:50 02/09/18 11:39 Red Blood Count 3.33 MIL/MM3 (4.00-5.30) Hemoglobin 11.5 GM/DL (11.6-15.3) Hematocrit 33.4 % (35.0-46.0) Mean Corpuscular Volume 100.3 FL (80.0-100.0) Mean Corpuscular Hemoglobin 34.5 PG (27.0-34.0) Platelet Count 135 TH/MM3 (150-450) Monocytes (%) (Auto) 8.5 % (0.0-8.0) Eosinophils (%) (Auto) 5.0 % (0.0-4.0) Basophils (%) (Auto) 2.1 % (0.0-2.0) Creatinine 1.64 MG/DL (0.50-1.00) Random Glucose 55 MG/DL (74-106) Calcium Level 7.9 MG/DL (8.5-10.1) Aspartate Amino Transf (AST/SGOT) 119 U/L (15-37) Alanine Aminotransferase (ALT/SGPT) 135 U/L (10-53) Chloride Level 111 MEQ/L (98-107) Estimat Glomerular Filtration Rate 32 ML/MIN (>89) Total Creatine Kinase 3548 U/L (26-192) Creatine Kinase MB 39.6 NG/ML (0.5-3.6) Troponin I LESS THAN 0.02 NG/ML Imaging Last Impressions Chest X-Ray 02/08/18 1433 Signed Impressions: Service Date/Time: Tuesday, February 08, 2018 14:46 - CONCLUSION: No acute disease. Kang Denise MD FACR PE at Discharge GENERAL: Patient appears somewhat edematous. SKIN: Bilateral upper extremity petechiae. CARDIOVASCULAR: Normal rate and regular rhythm without murmurs, gallops, or rubs. RESPIRATORY: Good respiratory efforts. Breath sounds equal and clear to auscultation bilaterally. GASTROINTESTINAL: Abdomen soft, non-tender, non-distended. Normal active bowel sounds MUSCULOSKELETAL: Extremities without cyanosis, or edema. NEURO: Alert & Oriented x4 to person, place, time, situation. Moves all ext x4 PSYCH: Appropriate mood and affect. Pt update on day of discharge Patient reports she is feeling better. More energy. States she will be compliant with medications. Hospital Course 62-year-old female admitted and treated for the following: Hypothyroidism/myxedema: Known history of hypothyroidism but has not been compliant with medications. Patient was admitted and treated with IV Synthroid. She was transitioned to oral Synthroid. She is advised to adhere to history regimen and follow-up outpatient for titration of medications. Rhabdomyolysis -Secondary to above. Patient was treated with IV fluid. CK trended down and symptoms improved. Acute Kidney Injury -Secondary to above. Patient was treated with IV fluid. Renal function improved and stabilized. She is advised to continue with oral hydration and follow-up outpatient for repeat labs Elevated LFTs -Secondary to dehydration and profound hypothyroidism. Improved with IV fluids. - Follow-up outpatient with PCP with repeat labs. Anxiety/adjustment disorder: Patient was seen by psychiatry. Advised outpatient follow-up. Pt Condition on Discharge: Good Discharge Disposition: Discharge Home Discharge Time: > 30 minutes Discharge Instructions DIET: Follow Instructions for: As Tolerated, No Restrictions Activities you can perform: Regular-No Restrictions Follow up Referrals: PCP Follow-up PCP Follow-up @ [facility] with DR. MIN New Medications: Levothyroxine (Synthroid) 100 Mcg Tab 100 MCG PO DAILY@0600, #30 TAB Jose Canales MD Feb 10, 2018 08:53
[2018-02-10] MEDS: SODIUM CHLORIDE 0.9% FLUSH 10 ML FLUSH IV FLUSH SCH (09:00)
[2018-02-10 11:30] LABS: ALBUMIN 4.1 GM/DL (3.4-5.0); ALT (GPT) 144 U/L (10-53); AST (GOT) 137 U/L (15-37); BICARBONATE 27.4 MEQ/L (21.0-32.0); BLOOD UREA NITROGEN 16 MG/DL (7-18); CALCIUM 8.3 MG/DL (8.5-10.1); CHLORIDE 111 MEQ/L (98-107); CREATININE 1.65 MG/DL (0.50-1.00); GLOMERULAR FILTRATION RATE 32 ML/MIN (>89); GLUCOSE,RANDOM 97 MG/DL (74-106); SODIUM (NA) 143 MEQ/L (136-145)
[2018-02-10 11:44] LABS: ALKALINE PHOSPHATASE 64 U/L (45-117); TOTAL BILIRUBIN ADULT 0.5 MG/DL (0.2-1.0)
[2018-02-10 12:33] VITALS: RESP 18
== END 2018-02-10 14:40 | disposition home or self-care (01) | DRG 644 ==
LOC: NEPE 11:31 → NEDA 17:20 → N04A 20:30
PROVIDERS: ADMIT Family Medicine; ATTEND Family Medicine
DX: E03.9 Hypothyroidism, unspecified (principal); M62.82 Rhabdomyolysis; N17.9 Acute kidney failure, unspecified; R00.1 Bradycardia, unspecified; R23.3 Spontaneous ecchymoses; R74.0 Nonspecific elevation of levels of transaminase and lactic acid dehydrogenase [LDH]; N18.9 Chronic kidney disease, unspecified; F60.9 Personality disorder, unspecified; R07.89 Other chest pain; G47.00 Insomnia, unspecified; E86.0 Dehydration; F13.10 Sedative, hypnotic or anxiolytic abuse, uncomplicated; F17.210 Nicotine dependence, cigarettes, uncomplicated; F31.9 Bipolar disorder, unspecified; F40.00 Agoraphobia, unspecified; F43.23 Adjustment disorder with mixed anxiety and depressed mood; Z83.49 Family history of other endocrine, nutritional and metabolic diseases; Z88.2 Allergy status to sulfonamides; Z91.14 Patient's other noncompliance with medication regimen; Z91.5 Personal history of self-harm
CPT/HCPCS: 71045; 80053; 81001; 82550; 82552; 83690; 83735; 83880; 84439; 84443; 84481; 84484; 85025; 85610; 85652; 85730; 86140; 93005; 96360; 96361; J2405; J7030